=== PATIENT | female | born 1945 | race Caucasian/White ===

== ENCOUNTER 2020-07-04 08:25 | Outpatient (REF) | payer MEDICARE, SELFPAY ==
--- NOTE | 2020-07-04 08:29 | CT_ITS ---
EXAMINATION: CT CHEST SCREENING CLINICAL INFORMATION: Smoking history COMPARISON: Previous exams March and June 2019 TECHNIQUE: Multidetector volumetric CT imaging of the chest is performed without contrast using low dose technique. Additional 2D coronal and sagittal reformatted images and axial 3D maximum intensity projection (MIP) images are generated on the CT workstation. This CT examination was performed using dose optimization techniques as appropriate, variously including the following: *Automated exposure control *Adjustment of mA and/or kV according to patient size (this includes techniques or standardized protocols for targeted exams where dose is matched to indication/reason for exam; i.e. extremities or head) *Use of iterative reconstruction technique DLP: 46 mGy-cm FINDINGS: LUNGS: There is evidence of mild emphysema. There are innumerable small bilateral pulmonary nodules with upper lobe predominance. Largest right pulmonary nodule measure 5 x 8 mm in the right upper lobe axial image 117 series 4. Largest left pulmonary nodule measures 6 x 8 mm in the left upper lobe axial image 164 series 4. Again, some nodules appear associated with airways and adjacent areas of mild bronchiectasis and bronchial wall thickening with cavitary appearance likely related to focal bronchiectasis. Multiple nodules are new compared to 2019 exams. Many nodules seen on prior exams from 2019 are no longer seen. No endobronchial or endotracheal lesion is seen. MEDIASTINUM: There is coronary artery calcification. The ascending thoracic aorta is upper normal in size. There is no pericardial effusion. There are small mediastinal lymph nodes. PLEURA: There is no pleural effusion. No pleural mass or thickening. AXILLA: No lymphadenopathy. UPPER ABDOMEN: There is diverticulosis of the colon. The left renal cyst is partially visualized. OSSEOUS STRUCTURES: There are degenerative changes of the spine. CT/CT lung screening IMPRESSION: Emphysema. Multiple small pulmonary nodules with upper lobe predominance, largest measuring 6 x 8 mm in the left upper lobe. Some nodules appear associated with airways. Multiple nodules are new compared to 2019 exams. Many nodules seen on prior exam from 2019 are no longer seen. Coronary artery calcification and upper normal-size thoracic aorta. ASSESSMENT: Lung-RADS category 4A suspicious RECOMMENDATION: 3 month follow follow-up low-dose chest CT recommended.
== END 2020-07-04 08:26 | disposition home or self-care (01) ==
LOC: HO.CT 08:25
PROVIDERS: PCP Internal Medicine; Visit Provider Surgery
DX: Z12.2 Encounter for screening for malignant neoplasm of respiratory organs (principal); F17.210 Nicotine dependence, cigarettes, uncomplicated
CPT/HCPCS: 71250

== ENCOUNTER 2020-07-12 08:25 | Outpatient (REF) | payer MEDICARE, SELFPAY | END 2020-07-12 08:26 | disposition home or self-care (01) | LOC: HO.BBR 08:25 | PROVIDERS: PCP Internal Medicine; Visit Provider Internal Medicine | DX: Z13.89 Encounter for screening for other disorder (principal) ==

== ENCOUNTER 2020-07-12 09:13 | Outpatient (REF) | payer SELFPAY ==
[2020-07-12 09:52] LABS: Cholesterol 167 mg/dL
== END 2020-07-12 09:14 | disposition home or self-care (01) ==
LOC: HO.LNC 09:13
PROVIDERS: Visit Provider Pathology Anatomic Pathology & Clinical Pathology
DX: Z76.89 Persons encountering health services in other specified circumstances (principal)
CPT/HCPCS: 82465

== ENCOUNTER → 2020-07-26 09:47 | Outpatient (BNVA) | payer BC, SELFPAY | PROVIDERS: PCP Internal Medicine; Referring Provider Internal Medicine; Visit Provider Internal Medicine | DX: Z76.89 Persons encountering health services in other specified circumstances (principal) ==

== ENCOUNTER 2020-08-29 08:47 | Outpatient (REF) | payer MEDICARE, SELFPAY ==
--- NOTE | 2020-08-29 13:53 | PFT_ITS ---
FLOWS: FEV1 of 85% of predicted at 1.58 L. FVC 82% of predicted at 2.08 L. FEV1 to FVC ratio of 0.76. No bronchodilator response except in small to medium airways. LUNG VOLUMES: Total lung capacity 99% of predicted at 4.73 L. Residual volume 121% of predicted at 2.71 L. Slow vital capacity 79% of predicted at 2.02 L. Expiratory reserve volume 85% of predicted at 0.43 L. Diffusion capacity is moderately decreased. IMPRESSION: No obstructive or restrictive ventilatory defect. No bronchodilator response except in small to medium airways. Increased residual volume suggests air trapping. Decreased diffusion capacity suggests emphysema. MD DEMETRIUS Hanson/MODL / [id number]
== END 2020-08-29 08:48 | disposition home or self-care (01) ==
LOC: HO.RESP 08:47
PROVIDERS: PCP Internal Medicine; Visit Provider Internal Medicine
DX: J44.9 Chronic obstructive pulmonary disease, unspecified (principal); R91.8 Other nonspecific abnormal finding of lung field; F17.210 Nicotine dependence, cigarettes, uncomplicated
CPT/HCPCS: 94060; 94727; 94729

== ENCOUNTER 2020-10-07 07:56 | Outpatient (REF) | payer MEDICARE, SELFPAY ==
--- NOTE | ~2020-10-07 | MM_ITS ---
EXAMINATION: MM SCREENING DIGITAL BREAST TOMOSYNTHESIS, BILATERAL CLINICAL INFORMATION: Screening. Asymptomatic. The lifetime risk of breast cancer based on the Tyrer-Cuzick Model is 6%. COMPARISON: Mammography: 10/02/2019, 09/26/2018, 09/19/2017, 08/29/2016 TECHNIQUE: Digital breast tomosynthesis is performed in both the craniocaudal and mediolateral oblique views along with computer-aided detection (CAD). Synthesized 2D images are generated from the tomosynthesis. FINDINGS: There are scattered areas of fibroglandular density (ACR BI-RADS breast composition Category b). There are no significant masses, abnormal calcifications, or other abnormalities. Parenchymal pattern is similar to prior exams. Scattered parenchymal asymmetry central inner right breast are stable. No developing density. The axilla and skin contours are unremarkable. MM/MM tomosynthesis screening BI IMPRESSION: No significant changes from prior exams. ASSESSMENT: BI-RADS 2: Benign RECOMMENDATION: Routine annual mammography screening. This patient's information was entered into a reminder system with a target due date for their next mammogram.
== END 2020-10-07 07:57 | disposition home or self-care (01) ==
LOC: HO.MAMMO 07:56
PROVIDERS: PCP Internal Medicine; Visit Provider Internal Medicine
DX: Z12.31 Encounter for screening mammogram for malignant neoplasm of breast (principal)
CPT/HCPCS: 77063; 77067

== ENCOUNTER 2021-01-05 08:19 | Outpatient (REF) | payer MEDICARE, SELFPAY ==
--- NOTE | ~2021-01-05 | CT_ITS ---
EXAMINATION: CT CHEST SCREENING CLINICAL INFORMATION: Smoker. Multiple nodes. COMPARISON: None. TECHNIQUE: Multidetector volumetric CT imaging of the chest is performed without contrast using low dose technique. Additional 2D coronal and sagittal reformatted images and axial 3D maximum intensity projection (MIP) images are generated on the CT workstation. This CT examination was performed using dose optimization techniques as appropriate, variously including the following: *Automated exposure control *Adjustment of mA and/or kV according to patient size (this includes techniques or standardized protocols for targeted exams where dose is matched to indication/reason for exam; i.e. extremities or head) *Use of iterative reconstruction technique DLP: 47 mGy-cm FINDINGS: LUNGS: The lungs are well expanded. There is a tree-in-bud appearance right lung apex, new since the previous study and best visualized on axial image 55/6. There are scattered pulmonary nodules visualized. A 3 mm new right apical lung nodule image 47/6, 4 mm nodule right upper lobe lateral segment image 127/6, previously seen 3 mm nodule left upper lobe axial image 114/5 are not distinctly visualized. Two nodules adjacent to each other seen previously on image 166/5 are not seen at this time. There are several subcentimeter two or three nodules seen in both upper lobes, a 3 mm nodule left upper lobe superior segment adjacent to the major fissure image 166/6, stable. There are 2 mm nodules right lower lobe image 72/9 which are stable. There are several additional nodules seen previously which are stable. MEDIASTINUM: The thyroid lobes are symmetrical and normal. The central trachea and the bronchi are widely patent. Heart size and the great vessels are normal caliber. No abnormal-sized mediastinal or hilar lymph node seen. There are coronary artery calcifications present. There is no pericardial effusion. PLEURA: There is no pleural effusion. No pleural mass or thickening. AXILLA: There are small shotty lymph nodes seen in bilateral axilla. The chest wall appears unremarkable. UPPER ABDOMEN: Visualized liver, spleen, pancreas and bilateral adrenal glands are unremarkable. OSSEOUS STRUCTURES: There is no lytic or sclerotic process seen. There is mild ventral spondylosis mid and lower dorsal spine. CT/CT lung screen follow up IMPRESSION: Waxing and waning of small pulmonary nodules seen. The largest left pulmonary nodule measuring 6 x 8 mm is not visualized, the largest nodule in the right upper lobe is also not visualized. No abnormal lymphadenopathy. ASSESSMENT: Lung-RADS category 2: Benign. RECOMMENDATION: Low dose annual CT chest.
== END 2021-01-05 08:20 | disposition home or self-care (01) ==
LOC: HO.CT 08:19
PROVIDERS: PCP Internal Medicine; Visit Provider Physician Assistant Medical
DX: Z12.2 Encounter for screening for malignant neoplasm of respiratory organs (principal); F17.210 Nicotine dependence, cigarettes, uncomplicated
CPT/HCPCS: 71250

== ENCOUNTER → 2021-01-13 10:02 | Outpatient (BNVA) | payer MEDICARE, SELFPAY | PROVIDERS: PCP Internal Medicine; Visit Provider Surgery | DX: R91.8 Other nonspecific abnormal finding of lung field (principal); F17.210 Nicotine dependence, cigarettes, uncomplicated; Z79.899 Other long term (current) drug therapy | CPT/HCPCS: 99212 ==

== ENCOUNTER → 2021-03-16 09:59 | Outpatient (BNVA) | payer MEDICARE, SELFPAY | PROVIDERS: PCP Internal Medicine; Visit Provider Internal Medicine | DX: R91.8 Other nonspecific abnormal finding of lung field (principal); J44.9 Chronic obstructive pulmonary disease, unspecified; Z87.891 Personal history of nicotine dependence; Z79.899 Other long term (current) drug therapy | CPT/HCPCS: 99212 ==

== ENCOUNTER → 2021-03-17 09:51 | Outpatient (BNV) | payer MEDICARE, SELFPAY | PROVIDERS: PCP Internal Medicine; Visit Provider Internal Medicine | DX: E83.110 Hereditary hemochromatosis (principal) | CPT/HCPCS: 99213; G2211 ==

== ENCOUNTER 2021-04-14 06:29 | Outpatient (REF) | payer MEDICARE, SELFPAY ==
[2021-04-14 08:22] LABS: MANUAL DIFF FLAG NO
[2021-04-14 08:29] LABS: Basophils Percent Auto 0.5 % (0-2); Eosinophils Absolute Auto 0.1 X10*3/uL (0.0-0.4); Eosinophils Percent Auto 1.6 % (0-4); Hematocrit 49.5 % (37-47); Hemoglobin 16.6 g/dl (12.0-16.0); Imm Gran Abs Auto 0.01 X10*3/uL (0.00-0.03); Imm Gran Pct Auto 0.2 % (0.0-0.4); Lymphocytes Absolute Auto 1.8 X10*3/uL (1.2-4.9); Lymphocytes Percent Auto 32.6 % (20-40); Mean Corpuscular HGB Conc 33.5 g/dl (31.0-35.0); Mean Corpuscular Hemoglobin 31.2 pg (27.0-33.0); Mean Platelet Volume 9.9 fL (9.4-12.3); Monocytes Absolute Auto 0.3 X10*3/uL (0.1-1.2); Monocytes Percent Auto 6.2 % (2-11); Neutrophils Absolute Auto 3.2 X10*3/uL (2.0-8.3); Neutrophils Percent Auto 58.9 % (45-73); Platelet Count 218 X10*3/uL (160-400); Red Blood Count 5.32 X10*6/uL (4.20-5.50); Red Cell Distribution Width 12.6 % (11.0-16.0); White Blood Count 5.5 X10*3/uL (4.8-10.8)
[2021-04-14 09:02] LABS: Alanine Aminotransferase 21 U/L (0-31); Albumin Level 4.2 g/dL (3.5-5.0); Alkaline Phosphatase 51 U/L (39-117); Anion Gap 14 (12-20); Aspartate Amino Transferase 21 U/L (5-31); Bilirubin Total 0.9 mg/dL (0.0-1.0); Blood Urea Nitrogen 15 mg/dL (9-16); Calcium 9.3 mg/dL (8.4-10.2); Carbon Dioxide 25 mmol/L (22-29); Chloride 107 mmol/L (96-108); Cholesterol 169 mg/dL; Estimated Glomerular Filt Rate > 60; Glucose Fasting 96 mg/dL (60-99); HDL Cholesterol 39 mg/dL; LDL Cholesterol Calculated 109 mg/dl; Potassium 4.5 mmol/L (3.3-5.1); Sodium 141 mmol/L (135-145); Total Protein 7.1 g/dL (6.5-8.0); Triglycerides 106 mg/dL
[2021-04-14 09:11] LABS: TSH reflex Free T4 0.79 uIU/mL (0.32-4.0)
[2021-04-14 09:19] LABS: Glucose Urine UA NEG (NEG); Leukocyte Esterase Urine 3+ (NEG); Nitrite Urine NEG (NEG); Specific Gravity - Urine 1.025 (1.005-1.025); UACC Culture Trigger YES; Urine Blood TRACE (NEG); Urine Ketones NEG (NEG); Urine Protein NEG (NEG-TRACE)
[2021-04-14 09:33] LABS: Appearance Urine HAZY; Color Urine YELLOW
[2021-04-14 10:01] LABS: Bacteria Urine TRACE /LPF; RBC Urine 0-2 /HPF (0); Squamous Epithelial Cell Urine TRACE /LPF
== END 2021-04-14 06:30 | disposition home or self-care (01) ==
LOC: HO.LAB 06:29
PROVIDERS: PCP Internal Medicine; Visit Provider Internal Medicine
DX: F17.200 Nicotine dependence, unspecified, uncomplicated (principal); Z14.8 Genetic carrier of other disease; E78.5 Hyperlipidemia, unspecified; R73.01 Impaired fasting glucose; E66.9 Obesity, unspecified
CPT/HCPCS: 36415; 80053; 80061; 81001; 84443; 85025; 87086

== ENCOUNTER → 2021-09-18 09:40 | Outpatient (BNVA) | payer MEDICARE, SELFPAY | PROVIDERS: PCP Internal Medicine; Visit Provider Internal Medicine | DX: J44.9 Chronic obstructive pulmonary disease, unspecified (principal); R91.8 Other nonspecific abnormal finding of lung field; Z14.8 Genetic carrier of other disease; F17.210 Nicotine dependence, cigarettes, uncomplicated; Z71.6 Tobacco abuse counseling | CPT/HCPCS: 99212 ==

== ENCOUNTER 2021-10-21 08:15 | Outpatient (REF) | payer MEDICARE, SELFPAY ==
--- NOTE | ~2021-10-21 | MM_ITS ---
EXAMINATION: MM SCREENING DIGITAL BREAST TOMOSYNTHESIS, BILATERAL CLINICAL INFORMATION: Screening. Asymptomatic. The lifetime risk of breast cancer based on the Tyrer-Cuzick Model is 5%. COMPARISON: Mammography: 10/07/2020, 10/02/2019, 09/26/2018, 09/19/2017, 08/29/2016 TECHNIQUE: Digital breast tomosynthesis is performed in both the craniocaudal and mediolateral oblique views along with computer-aided detection (CAD). Synthesized 2D images are generated from the tomosynthesis. FINDINGS: There are scattered areas of fibroglandular density (ACR BI-RADS breast composition Category b). There are no significant masses, abnormal calcifications, or other abnormalities. Parenchymal pattern is similar to prior studies. There are no significant changes. MM/MM tomosynthesis screening BI IMPRESSION: No significant changes from prior studies. ASSESSMENT: BI-RADS 1: Negative RECOMMENDATION: Routine annual mammography screening. This patient's information was entered into a reminder system with a target due date for their next mammogram.
== END 2021-10-21 08:16 | disposition home or self-care (01) ==
LOC: HO.MAMMO 08:15
PROVIDERS: PCP Internal Medicine; Visit Provider Internal Medicine
DX: Z12.31 Encounter for screening mammogram for malignant neoplasm of breast (principal)
CPT/HCPCS: 77063; 77067

== ENCOUNTER 2022-01-09 08:11 | Outpatient (REF) | payer MEDICARE, SELFPAY ==
--- NOTE | ~2022-01-09 | CT_ITS ---
EXAMINATION: CT CHEST SCREENING CLINICAL INFORMATION: Current smoker. 65 pack year history. COMPARISON: None. TECHNIQUE: Multidetector volumetric CT imaging of the chest is performed without contrast using low dose technique. Additional 2D coronal and sagittal reformatted images and axial 3D maximum intensity projection (MIP) images are generated on the CT workstation. This CT examination was performed using dose optimization techniques as appropriate, variously including the following: *Automated exposure control *Adjustment of mA and/or kV according to patient size (this includes techniques or standardized protocols for targeted exams where dose is matched to indication/reason for exam; i.e. extremities or head) *Use of iterative reconstruction technique DLP: 46 mGy-cm FINDINGS: LUNGS: There is evidence of emphysema. There are innumerable small bilateral pulmonary nodules. These appear increased in size and number from previous exams. Largest right pulmonary nodules measure 5 mm in the right upper lobe axial image 166 series 5, and 4 x 8 mm in the right lower lobe axial image 220 series 5. Largest left pulmonary nodules measure 4 mm the left upper lobe axial image 85 and 89 series 5. There is a new heterogeneous mixed cystic and reticular nodule in the left upper lobe measuring 5 x 10 mm axial image 186 series 5 and smaller more inferior area measuring 5 mm in the left upper lobe axial image 198 series 5. There is increasing tree-in-bud appearance in the right lung apex, largest areas measuring 0.4 x 1.2 cm in the right upper lobe axial image 58 series 5, and 0.4 x 0.8 cm in the right upper lobe axial image 60 series 5 which appear branching or tubular and may be endobronchial. No endotracheal lesion is seen. No bronchiectasis or evidence of interstitial lung disease is seen. MEDIASTINUM: There is coronary artery calcification. The mediastinum is otherwise normal. PLEURA: There is no pleural effusion. No pleural mass or thickening. AXILLA: No lymphadenopathy. UPPER ABDOMEN: Partially visualized large left renal cyst. OSSEOUS STRUCTURES: There are degenerative changes of the spine. CT/CT lung screening IMPRESSION: Emphysema. Increasing size and number of pulmonary nodules compared to December 2020. Infectious, inflammatory and neoplastic processes should be considered. Short-term follow-up following treatment recommended. Coronary artery calcification. Large left renal cyst. ASSESSMENT: Lung-RADS category 4. Suspicious. RECOMMENDATION: Low-dose chest CT follow-up in 3 months following treatment recommended .
== END 2022-01-09 08:12 | disposition home or self-care (01) ==
LOC: HO.CT 08:11
PROVIDERS: Visit Provider Physician Assistant Medical
DX: Z12.2 Encounter for screening for malignant neoplasm of respiratory organs (principal); F17.210 Nicotine dependence, cigarettes, uncomplicated
CPT/HCPCS: 71271

== ENCOUNTER → 2022-03-27 10:31 | Outpatient (BNVA) | payer MEDICARE, SELFPAY | PROVIDERS: PCP Internal Medicine; Visit Provider Internal Medicine | DX: J44.9 Chronic obstructive pulmonary disease, unspecified (principal); J30.9 Allergic rhinitis, unspecified; R91.8 Other nonspecific abnormal finding of lung field; F17.210 Nicotine dependence, cigarettes, uncomplicated | CPT/HCPCS: 99212 ==

== ENCOUNTER 2022-04-03 06:12 | Outpatient (REF) | payer MEDICARE, SELFPAY ==
[2022-04-03 06:18] LABS: MANUAL DIFF FLAG NO
[2022-04-03 07:25] LABS: Basophils Percent Auto 0.8 % (0-2); Eosinophils Absolute Auto 0.1 X10*3/uL (0.0-0.4); Eosinophils Percent Auto 1.6 % (0-4); Hematocrit 49.2 % (37.0-47.0); Hemoglobin 16.5 g/dl (12.0-16.0); Imm Gran Abs Auto 0.01 X10*3/uL (0.00-0.03); Imm Gran Pct Auto 0.2 % (0.0-0.4); Lymphocytes Absolute Auto 1.8 X10*3/uL (1.2-4.9); Lymphocytes Percent Auto 34.2 % (20-40); Mean Corpuscular HGB Conc 33.5 g/dl (31.0-35.0); Mean Corpuscular Hemoglobin 31.3 pg (27.0-33.0); Mean Corpuscular Volume 93.2 fL (80.0-98.0); Mean Platelet Volume 9.5 fL (9.4-12.3); Monocytes Absolute Auto 0.4 X10*3/uL (0.1-1.2); Monocytes Percent Auto 7.4 % (2-11); Neutrophils Absolute Auto 2.9 x10*3/uL (2.0-8.3); Neutrophils Percent Auto 55.8 % (45-73); Platelet Count 230 X10*3/uL (160-400); Red Blood Count 5.28 X10*6/uL (4.20-5.50); Red Cell Distribution Width 12.7 % (11.0-16.0); White Blood Count 5.1 X10*3/uL (4.8-10.8)
[2022-04-03 07:43] LABS: Alanine Aminotransferase 14 U/L (0-31); Albumin Level 4.1 g/dL (3.5-5.0); Alkaline Phosphatase 55 U/L (39-117); Anion Gap 14 (12-20); Aspartate Amino Transferase 18 U/L (5-31); Bilirubin Total 0.5 mg/dL (0.0-1.0); Blood Urea Nitrogen 14 mg/dL (9-16); Calcium 9.1 mg/dL (8.4-10.2); Carbon Dioxide 26 mmol/L (22-29); Chloride 106 mmol/L (96-108); Cholesterol 168 mg/dL; Estimated Glomerular Filt Rate > 60; Glucose Fasting 97 mg/dL (60-99); HDL Cholesterol 39 mg/dL; LDL Cholesterol Calculated 114 mg/dl; Potassium 4.7 mmol/L (3.3-5.1); Sodium 141 mmol/L (135-145); Total Protein 6.8 g/dL (6.5-8.0); Triglycerides 75 mg/dL
[2022-04-03 08:06] LABS: TSH reflex Free T4 0.84 uIU/mL (0.32-4.0); Vitamin D 25-OH Total 40.5 ng/mL (>30)
[2022-04-03 08:17] LABS: Estimated Average Glucose 105 mg/dL; Hemoglobin A1C 148.4397 umol/L; Hemoglobin A1c % 5.3 %
[2022-04-03 09:09] LABS: Appearance Urine HAZY; Color Urine YELLOW; Glucose Urine UA NEG (NEG); Leukocyte Esterase Urine 1+ (NEG); Nitrite Urine NEG (NEG); PH 5.5 (5.0-8.0); Specific Gravity - Urine >= 1.030 (1.005-1.025); UACC Culture Trigger YES; Urine Blood NEG (NEG); Urine Ketones NEG (NEG); Urine Protein NEG (NEG-TRACE)
[2022-04-03 09:20] LABS: RBC Urine 0 /HPF (0)
[2022-04-03 09:21] LABS: Bacteria Urine TRACE /LPF; Calcium Oxalate Crystals Urine 2+ /LPF; Squamous Epithelial Cell Urine 2+ /LPF
== END 2022-04-03 06:13 | disposition home or self-care (01) ==
LOC: HO.LAB 06:12
PROVIDERS: PCP Internal Medicine; Visit Provider Internal Medicine
DX: I10 Essential (primary) hypertension (principal); E78.5 Hyperlipidemia, unspecified; E78.00 Pure hypercholesterolemia, unspecified; E55.9 Vitamin D deficiency, unspecified; R73.01 Impaired fasting glucose
CPT/HCPCS: 36415; 80053; 80061; 81001; 81003; 82306; 83036; 84443; 85025; 87086

== ENCOUNTER 2022-09-19 06:07 | Outpatient (REF) | payer MEDICARE, SELFPAY ==
[2022-09-19 06:26] LABS: MANUAL DIFF FLAG NO
[2022-09-19 07:44] LABS: Basophils Percent Auto 0.6 % (0-2); Eosinophils Absolute Auto 0.1 X10*3/uL (0.0-0.4); Eosinophils Percent Auto 1.1 % (0-4); Hematocrit 48.3 % (37.0-47.0); Hemoglobin 16.1 g/dl (12.0-16.0); Imm Gran Abs Auto 0.01 X10*3/uL (0.00-0.03); Imm Gran Pct Auto 0.2 % (0.0-0.4); Lymphocytes Absolute Auto 1.5 X10*3/uL (1.2-4.9); Mean Corpuscular HGB Conc 33.3 g/dl (31.0-35.0); Mean Corpuscular Hemoglobin 30.8 pg (27.0-33.0); Mean Corpuscular Volume 92.5 fL (80.0-98.0); Mean Platelet Volume 9.6 fL (9.4-12.3); Monocytes Absolute Auto 0.3 X10*3/uL (0.1-1.2); Monocytes Percent Auto 5.8 % (2-11); Neutrophils Absolute Auto 3.5 x10*3/uL (2.0-8.3); Neutrophils Percent Auto 65.3 % (45-73); Platelet Count 236 X10*3/uL (160-400); Red Blood Count 5.22 X10*6/uL (4.20-5.50); Red Cell Distribution Width 12.7 % (11.0-16.0); White Blood Count 5.4 X10*3/uL (4.8-10.8)
[2022-09-19 07:52] LABS: Appearance Urine Clear; Color Urine Dark Yellow; Glucose Urine UA Negative (Negative); Leukocyte Esterase Urine Moderate (2+) (Negative); Nitrite Urine Negative (Negative); PH 5.5 (5.0-9.0); UMIC TRIGGER UACC YES; Urine Blood Negative (Negative); Urine Ketones Negative (Negative); Urine Protein Negative (Neg-Trace)
[2022-09-19 07:56] LABS: Bacteria Urine None Seen (None Seen); Hyaline Casts Urine 0-2 /LPF (0-2); RBC Urine 0-2 /HPF (0-2); UACC Culture Trigger YES
[2022-09-19 08:25] LABS: Alanine Aminotransferase 15 U/L (0-31); Alkaline Phosphatase 57 U/L (39-117); Anion Gap 14 (12-20); Aspartate Amino Transferase 21 U/L (5-31); Bilirubin Total 0.7 mg/dL (0.0-1.0); Blood Urea Nitrogen 14 mg/dL (9-16); Calcium 9.6 mg/dL (8.4-10.2); Carbon Dioxide 29 mmol/L (22-29); Chloride 104 mmol/L (96-108); Cholesterol 163 mg/dL; Estimated Glomerular Filt Rate > 60; Glucose Fasting 138 mg/dL (60-99); HDL Cholesterol 48 mg/dL; LDL Cholesterol Calculated 94 mg/dl; Potassium 4.6 mmol/L (3.3-5.1); Sodium 142 mmol/L (135-145); Total Protein 6.7 g/dL (6.5-8.0); Triglycerides 107 mg/dL
[2022-09-19 08:46] LABS: Vitamin D 25-OH Total 35.8 ng/mL (>30)
== END 2022-09-19 06:08 | disposition home or self-care (01) ==
LOC: HO.LAB 06:07
PROVIDERS: PCP Internal Medicine; Visit Provider Internal Medicine
DX: Z14.8 Genetic carrier of other disease (principal); J44.9 Chronic obstructive pulmonary disease, unspecified; E55.9 Vitamin D deficiency, unspecified; E78.00 Pure hypercholesterolemia, unspecified; R82.90 Unspecified abnormal findings in urine
CPT/HCPCS: 36415; 80053; 80061; 81001; 82306; 84443; 85025; 87086

== ENCOUNTER 2022-10-29 07:59 | Outpatient (REF) | payer MEDICARE, SELFPAY ==
--- NOTE | ~2022-10-29 | MM_ITS ---
EXAMINATION: MM SCREENING DIGITAL BREAST TOMOSYNTHESIS, BILATERAL CLINICAL INFORMATION: Screening. Asymptomatic. The lifetime risk of breast cancer based on the Tyrer-Cuzick Model is 5%. COMPARISON: Mammography: 10/21/2021, 10/07/2020, 10/02/2019 TECHNIQUE: Digital breast tomosynthesis is performed in both the craniocaudal and mediolateral oblique views along with computer-aided detection (CAD). Synthesized 2D images are generated from the tomosynthesis. FINDINGS: There are scattered areas of fibroglandular density (ACR BI-RADS breast composition Category b). There is fine fibronodular parenchymal pattern. No significant mass or architectural abnormality. No abnormal calcifications. The axilla and skin contours are unremarkable. No significant changes prior exams. MM/MM tomosynthesis screening BI IMPRESSION: No significant changes from prior studies. ASSESSMENT: BI-RADS 2: Benign RECOMMENDATION: Routine annual mammography screening. This patient's information was entered into a reminder system with a target due date for their next mammogram.
== END 2022-10-29 08:00 | disposition home or self-care (01) ==
LOC: HO.MAMMO 07:59
PROVIDERS: PCP Internal Medicine; Visit Provider Internal Medicine
DX: Z12.31 Encounter for screening mammogram for malignant neoplasm of breast (principal)
CPT/HCPCS: 77063; 77067

== ENCOUNTER 2023-03-21 06:02 | Outpatient (REF) | payer MEDICARE, SELFPAY ==
[2023-03-21 06:22] LABS: MANUAL DIFF FLAG NO
[2023-03-21 07:32] LABS: Basophils Percent Auto 0.8 % (0-2); Eosinophils Absolute Auto 0.1 X10*3/uL (0.0-0.4); Eosinophils Percent Auto 1.9 % (0-4); Hematocrit 48.9 % (37.0-47.0); Hemoglobin 16.3 g/dl (12.0-16.0); Imm Gran Abs Auto 0.05 X10*3/uL (0.00-0.03); Lymphocytes Absolute Auto 1.6 X10*3/uL (1.2-4.9); Lymphocytes Percent Auto 31.3 % (20-40); Mean Corpuscular HGB Conc 33.3 g/dl (31.0-35.0); Mean Corpuscular Hemoglobin 31.3 pg (27.0-33.0); Mean Corpuscular Volume 93.9 fL (80.0-98.0); Mean Platelet Volume 9.7 fL (9.4-12.3); Monocytes Absolute Auto 0.3 X10*3/uL (0.1-1.2); Monocytes Percent Auto 6.5 % (2-11); Neutrophils Percent Auto 58.5 % (45-73); Platelet Count 235 X10*3/uL (160-400); Red Blood Count 5.21 X10*6/uL (4.20-5.50); Red Cell Distribution Width 12.4 % (11.0-16.0); White Blood Count 5.2 X10*3/uL (4.8-10.8)
[2023-03-21 07:38] LABS: Estimated Average Glucose 105 mg/dL; Hemoglobin A1c % 5.3 %
[2023-03-21 07:47] LABS: Appearance Urine Clear; Color Urine Yellow; Glucose Urine UA Negative (Negative); Leukocyte Esterase Urine Moderate (2+) (Negative); Nitrite Urine Negative (Negative); UMIC TRIGGER UACC YES; Urine Blood Negative (Negative); Urine Ketones Negative (Negative); Urine Protein Negative (Neg-Trace)
[2023-03-21 08:17] LABS: Bacteria Urine Trace (None Seen); Hyaline Casts Urine 0-2 /LPF (0-2); RBC Urine 0-2 /HPF (0-2); WBC Urine 0-5 /HPF (0-5)
[2023-03-21 08:21] LABS: Alanine Aminotransferase 15 U/L (0-31); Albumin Level 3.9 g/dL (3.5-5.0); Alkaline Phosphatase 53 U/L (39-117); Anion Gap 16 (12-20); Aspartate Amino Transferase 20 U/L (5-31); Bilirubin Total 0.4 mg/dL (0.0-1.0); Blood Urea Nitrogen 11 mg/dL (9-16); Calcium 9.3 mg/dL (8.4-10.2); Carbon Dioxide 23 mmol/L (22-29); Chloride 107 mmol/L (96-108); Cholesterol 167 mg/dL; Estimated Glomerular Filt Rate > 60; Glucose Fasting 104 mg/dL (60-99); HDL Cholesterol 43 mg/dL; LDL Cholesterol Calculated 111 mg/dl; Potassium 4.7 mmol/L (3.3-5.1); Sodium 141 mmol/L (135-145); Triglycerides 67 mg/dL
[2023-03-21 08:41] LABS: TSH reflex Free T4 0.79 uIU/mL (0.32-4.0)
== END 2023-03-21 06:03 | disposition home or self-care (01) ==
LOC: HO.LAB 06:02
PROVIDERS: PCP Internal Medicine; Visit Provider Internal Medicine
DX: Z14.8 Genetic carrier of other disease (principal); E78.5 Hyperlipidemia, unspecified; R73.01 Impaired fasting glucose; E55.9 Vitamin D deficiency, unspecified
CPT/HCPCS: 36415; 80053; 80061; 81001; 82306; 83036; 84443; 85025

== ENCOUNTER 2023-04-04 09:38 | Outpatient (AMB) | payer MEDICARE, SELFPAY ==
[2023-04-04 10:04] VITALS: BP 120/82; PULSE 66; O2SAT 94; BMI 27.9
--- NOTE | 2023-04-04 10:04 | A.OFFPC_ITS ---
Vital Signs 04/04/23 10:04 Height 5 ft 2 in Weight 152 lb 6 oz BMI 27.9 BP 120/82 Blood Pressure Location Lt brachial Position Sitting Pulse 66 Pulse Source Pulse Oximeter Pulse Oximetry (%) 94 Oxygen Delivery Method Room Air Intake Visit Reasons: 6m F/U Hemochromatosis carrier, Dyslipidemia,IFG [employer] Required: No Accompanied by: Self / Same As Patient Allergies Sulfa (Sulfonamide Antibiotics) Allergy (Intermediate, Verified 04/04/23 10:22) RASH,HIVES,ITCHY Medication List - Last Reconciled 04/04/23 by Jorge L Schneiedr MD cyanocobalamin (vitamin B-12) 500 mcg PO DAILY multivitamin (Daily Multi-Vitamin tablet) 1 tab PO DAILY oxybutynin chloride ER 10 mg PO DAILY 90 days Tobacco use date assessed: 04/04/23 Fall risk assessment: No Falls in past year Last assessed Fall Risk: 04/04/23 Dental Screening Dental Screen Date: 04/04/23 Did you have a dental visit in the last 12 months?: Yes Did you have a dental problem in the last 6 months where you did not have access to dental care?: No Was dental information given to patient?: Patient has dentist HPI 6m F/U Hemochromatosis carrier, Dyslipidemia,IFG HPI Details Patient comes in today for her follow up visit States that she feels okay Had her cataract surgery done back in December 2022 - states that her surgery went well with no issues Is presently getting injections into her eye from ophthalmology for macular degeneration She denies any headaches or dizziness Denies any chest pains, no SOB No nausea/vomiting, no abdominal pain No change in bowel habits noted Was seen by hematology/oncology last month for her routine follow up - was advised that everything looks okay and she currently has no concerning issues and she will be seen again for her follow up in 1 year Had her follow up labs done a couple of weeks ago - to discuss her results [facility] Medical History Allergic rhinitis COPD (chronic obstructive pulmonary disease) Dyslipidemia Hemochromatosis carrier Impaired fasting glucose Nicotine dependence, cigarettes, uncomplicated Overactive bladder Overweight (BMI 25.0-29.9) Personal history of nicotine dependence Pulmonary nodules Smoker Surgical History History of breast biopsy History of cataract surgery History of colonoscopy History of excision of lesion Family History Mother Hemochromatosis Breast cancer Maternal Aunt Ovarian cancer Maternal Aunt Breast cancer Father Medical history unknown Social History Household Members: None Housing: House Alcohol intake: current Alcohol intake frequency: holidays/special occasions only Alcohol type: wine Patient Tobacco Use Status: Current everyday Tobacco user Tobacco use type: Cigarette Cigarette Packs Per Day: 1 Years Smoked: 60 e-Cigarette/Vaping Use: Never Used Second Hand Smoke Exposure: Yes service: No Current occupational status: retired Cognitive needs: No Hearing needs: No Vision needs: Yes Questionnaire PHQ-9 Over the last 2 weeks, how often have you been bothered by any of the following problems? 1. Little interest or pleasure in doing things: not at all 2. Feeling down, depressed, or hopeless: not at all 3. Trouble falling or staying asleep, or sleeping too much: not at all 4. Feeling tired or having little energy: not at all 5. Poor appetite or overeating: not at all 6. Feeling bad about yourself - or that you are a failure or have let yourself or your family down: not at all 7. Trouble concentrating on things, such as reading the newspaper or watching television: not at all 8. Moving or speaking so slowly that other people could have noticed. Or the opposite - being so fidgety or restless that you have been moving around a lot more than usual: not at all 9. Thoughts that you would be better off or of hurting yourself in some way: not at all Total score: 0 Depression Screening Interpretation: Negative 46751 - PHQ-9 Billing: Yes Source: Developed by Drs. Bruno Day, Roxie Fam, Palmer Edwards and colleagues, with an educational alina from [employer]. Thrive Questionnaire Date Thrive assessed: 04/04/23 I am a: Patient What is your living situation today?: I have a steady place to live Within the past 12 months, did the food you bought not last and you didn't have the money to get more?: Never true Within the past 12 months, did you worry whether your food would run out before you got money to buy more?: Never true Do you have trouble paying for medicines?: No Do you have trouble getting transportation to medical appointments?: No Do you have trouble paying your heating and electricity bill?: No Do you have trouble taking care of your child, family member or friend?: No Do you have trouble with day-to-day activities such as bathing, preparing meals, shopping, managing finances, etc.?: No Are you currently unemployed and looking for a job?: No Are you interested in more education?: No Please select the resources that you would like help with: None Currently or been in a relationship where the following occur: no concerns reported AUDIT C Alcohol Use Questionnaire (AUDIT-C) 1. How often do you have a drink containing alcohol?: Never 2. How many drinks containing alcohol do you have on a typical day when you are drinking?: 1 or 2 3. How often do you have six or more drinks on one occasion?: Never Total Score: 0 Score Reviewed/Action Taken: Yes BETY-7 AMB Questionnaire BETY-7 Date BETY - 7 assessed: 04/04/23 Feeling nervous, anxious, or on edge: 0 = Not at all Not being able to stop or control worryin = Not at all Worrying too much about different things: 0 = Not at all Trouble relaxin = Not at all Being so restless that it is hard to sit still: 0 = Not at all Becoming easily annoyed or irritable: 0 = Not at all Feeling afraid as if something awful might happen: 0 = Not at all Total BETY-7 score (0-4 normal; 5-9 mild; 10-14 moderate; 15-21 severe): 0 Source: Developed by Drs. Bruno Day, Roxie Fam, Palmer Edwards and colleagues, with an educational alina from [employer]. Review of Systems Const Denies chills, Denies fatigue, Denies fever(s), Denies headache(s) and Denies malaise ENT Denies dysphagia, Denies dizziness, Denies otalgia, Denies headache(s), Denies neck pain, Denies odynophagia and Denies sore throat Card Denies chest pain, Denies palpitations and Denies dyspnea Resp Denies cough, Denies dyspnea and Denies wheezing GI Denies abdominal pain, Denies constipation, Denies dysphagia, Denies heartburn, Denies diarrhea, Denies nausea, Denies odynophagia and Denies vomiting Denies difficulty voiding, Reports nocturia (symptoms have improved a lot with Rx), Denies dysuria and Reports urinary incontinence (at times - improved with Rx) Musc Denies neck pain Skin/Breast Denies rash Neuro Denies dizziness and Denies headache(s) Endo Denies fatigue and Denies palpitations Aller/Immun Denies wheezing Physical exam (Primary Care) Vital Signs: Last Vital Signs Pulse 66 04/04/23 10:04 BP 120/82 04/04/23 10:04 Pulse Ox 94 04/04/23 10:04 Oxygen Delivery Method Room Air 04/04/23 10:04 BMI result Body Mass Index 27.9 Tobacco/Smoking Status: Tobacco use Status Tobacco use date assessed 04/04/23 04/04/23 10:06 Patient Tobacco Use Status Current everyday Tobacco 04/04/23 10:06 Tobacco use type Cigarette 04/04/23 10:06 e-Cigarette/Vaping Use Never Used 04/04/23 10:06 PHQ-9: PHQ-9 Score PHQ-9: Total score 0 04/04/23 10:23 Depression Screening Interpretation: Negative Thrive Assessment: Date of Thrive Assessment Date Thrive assessed 04/04/23 04/04/23 10:06 Currently or been in a relationship where the following occur: no concerns reported Const General: no acute distress and alert HENMT Ears: TM's normal bilaterally and EAC's normal Throat: Yes posterior oropharynx normal and Yes tonsils normal (no TP congestion noted) Neck Neck: Yes no lymphadenopathy and Yes supple Resp Auscultation: clear to auscultation bilaterally, no rales and no wheezes Cardio Rate: regular rate Rhythm: regular rhythm Heart sounds: no murmurs GI Palpation (GI): Soft to palpation, nontender and No hepatosplenomegaly present Auscultation: normal bowel sounds Extrem General: Yes no clubbing, cyanosis or edema Results Reviewed Results Reviewed: Laboratory Tests 03/04/23 03/21/23 03/21/23 08:38 06:17 06:21 WBC 5.2 Hgb 16.3 H Hct 48.9 H Plt Count 235 Sodium Potassium Creatinine Estimated GFR Fasting Glucose Hemoglobin A1c % Calcium Ferritin 117 AST ALT Triglycerides Cholesterol LDL Cholesterol, Calc HDL Cholesterol 25-OH Vitamin D Total TSH Ur Specific [place] 1.020 Urine Protein Negative Urine Glucose (UA) Negative Urine Blood Negative 03/21/23 03/21/23 06:21 06:21 WBC Hgb Hct Plt Count Sodium 141 Potassium 4.7 Creatinine 0.82 Estimated GFR > 60 Fasting Glucose 104 H Hemoglobin A1c % 5.3 Calcium 9.3 Ferritin AST 20 ALT 15 Triglycerides 67 Cholesterol 167 LDL Cholesterol, Calc 111 HDL Cholesterol 43 25-OH Vitamin D Total 50.0 TSH 0.79 Ur Specific [place] Urine Protein Urine Glucose (UA) Urine Blood Assessment and Plan Assessment & Plan (1) COPD (chronic obstructive pulmonary disease): Comment: (08/29/20 PFT: FEV1 85%, FVC 82%, FEV1/FVC 0.76, DLCO 49%, mod dec).. COPD is mild, she is the essentially asymptomatic at this time No meds needed Will be followed up Yearly and as needed . Code(s): J44.9 - Chronic obstructive pulmonary disease, unspecified Qualifiers: COPD type: unspecified COPD Qualified Code(s): J44.9 - Chronic obstructive pulmonary disease, unspecified Plan: Chest CT done in 2019 showed findings of pulmonary emphysema - patient feels well and reports no symptoms of SOB or [place] at any time Per pulmonary, patient's COPD is mild and still does NOT require any Rx at present Follow up with pulmonary (Dr. 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 Smith/Andriy) as scheduled - is now seen once a year Continue Phlebotomy every 2 to 3 months / as needed - patient states that she has not gone for phlebotomy in the past couple of years Will continue to monitor her CBC regularly (4) Impaired fasting glucose: Code(s): R73.01 - Impaired fasting glucose Plan: HgbA1c was normal at 5.3% when checked last summer and remains normal at 5.3% on her labs done a couple of weeks ago Reinforced low calorie diet/exercise as tolerated (5) Overactive bladder: Code(s): N32.81 - Overactive bladder Plan: Notes (+) significant improvement of her OAD symptoms with Rx Continue Oxybutynin ER 10 mg QD (6) Smoker: Comment: Patient continues to smoke 1 pack of cigarettes a day. She is well aware of the pros and cons. She continues to participate in Annual lung screening program. Code(s): F17.200 - Nicotine dependence, unspecified, uncomplicated Plan: Counseled again on smoking cessation (7) Overweight (BMI 25.0-29.9): Code(s): E66.3 - Overweight Plan: Reinforced diet/exercise as tolerated/lose weight Plan Follow up in 6 months Orders: Orders Vitamin B12 and Folate 6 Months E53.8 - Deficiency of other specified B group vitamins Comprehensive [place]. Panel Fast 6 Months E78.00 - Pure hypercholesterolemia, unspecified Ferritin 6 Months Z14.8 - Genetic carrier of other disease Lipid Panel 6 Months E78.00 - Pure hypercholesterolemia, unspecified Vitamin D 25-OH Total 6 Months E55.9 - Vitamin D deficiency, unspecified Complete Blood Count Auto Diff 6 Months I10 - Essential (primary) hypertension UA CC w/rflx Micro + Cult 6 Months R30.0 - Dysuria Coding Level of Care Code Est Pt Level 4 (66593) Diagnoses COPD (chronic obstructive pulmonary disease) J44.9 COPD type: unspecified COPD Dyslipidemia E78.5 Hemochromatosis carrier Z14.8 Impaired fasting glucose R73.01 Overactive bladder N32.81 Smoker F17.200 Overweight (BMI 25.0-29.9) E66.3
== END 2023-04-04 10:31 | disposition home or self-care (01) ==
LOC: HO.HMGH 09:38
PROVIDERS: PCP Internal Medicine; Visit Provider Internal Medicine
DX: J44.9 Chronic obstructive pulmonary disease, unspecified (principal); E78.5 Hyperlipidemia, unspecified; R73.01 Impaired fasting glucose; F17.210 Nicotine dependence, cigarettes, uncomplicated; Z14.8 Genetic carrier of other disease; N32.81 Overactive bladder; E66.3 Overweight
CPT/HCPCS: 99214

== ENCOUNTER 2023-04-18 10:44 | Outpatient (AMB) | payer MEDICARE, SELFPAY ==
--- NOTE | 2023-04-18 10:47 | MHC.OFFVIS ---
Intake Vital Signs 04/18/23 10:48 Height 5 ft 2 in Weight 153 lb 3.54 oz BMI 28.0 BP 128/68 Blood Pressure Location Lt brachial Position Sitting Pulse 70 Pulse Source Pulse Oximeter Pulse Oximetry (%) 94 Oxygen Delivery Method Room Air Intake Visit Reasons: COPD Allergies Sulfa (Sulfonamide Antibiotics) Allergy (Intermediate, Verified 04/18/23 11:07) RASH,HIVES,ITCHY Medication List - Last Reconciled 04/18/23 by Brenda Amador MD cyanocobalamin (vitamin B-12) 2,000 mcg PO DAILY multivitamin (Daily Multi-Vitamin tablet) 1 tab PO DAILY oxybutynin chloride ER 10 mg PO DAILY 90 days Do you need a note to return to daycare/school/sports/work: No HPI COPD HPI Details 77 YEARS OLD VERY PLEASANT FEMALE, SMOKER, LIVES INDEPENDENTLY IN HER HOUSE. SHE HAS NO SPECIFIC COMPLAINTS, EXCEPT FOR MILD INTERMITTENT COUGH, AND ALSO THAT SHE GETS SHORT OF BREATH ON DOING HER HOUSEHOLD WORK SOMEWHAT MORE THAN BEFORE. SHE HAS HAD NO ACUTE RESPIRATORY INFECTIONS. SHE DOES NOT USE ANY BRONCHODILATOR INHALERS. SHE ALSO DOES NOT NEED TO USE ANY COUGH MEDICINE. SHE IS PARTICIPATING IN ANNUAL LUNG SCREENING PROGRAM. LAST CT SCAN IN DECEMBER 2021, SHE HAS NOT BEEN CALLED SO FOR THIS YEAR. HER CT SCANS DO SHOW MULTIPLE BUT SMALL PULMONARY NODULES, PFSH Medical History Allergic rhinitis COPD (chronic obstructive pulmonary disease) Dyslipidemia Hemochromatosis carrier Impaired fasting glucose Nicotine dependence, cigarettes, uncomplicated Overactive bladder Overweight (BMI 25.0-29.9) Personal history of nicotine dependence Pulmonary nodules Smoker Surgical History History of breast biopsy History of cataract surgery History of colonoscopy History of excision of lesion Family History Mother Hemochromatosis Breast cancer Maternal Aunt Ovarian cancer Maternal Aunt Breast cancer Father Medical history unknown Social History Household Members: None Housing: House Alcohol intake: current Alcohol intake frequency: holidays/special occasions only Alcohol type: wine Patient Tobacco Use Status: Current everyday Tobacco user Tobacco use type: Cigarette Cigarette Packs Per Day: 1 Years Smoked: 60 e-Cigarette/Vaping Use: Never Used Second Hand Smoke Exposure: Yes service: No Current occupational status: retired Cognitive needs: No Hearing needs: No Vision needs: Yes Review of Systems Const All systems reviewed & are unremarkable except as noted in HPI and below Eyes Reports other (HAS MACULAR DEGENERATION, GETTING INJECTION ONCE A MONTH.) ENT Details: Reports no additional complaints Card Denies chest pain, Denies irregular heart rhythm and Denies leg edema Resp Reports as per HPI GI Reports no additional complaints Reports urinary incontinence (CONTROLLED WITH OXYBUTYNIN CHLORIDE) Musc Reports no additional complaints Skin/Breast Reports system reviewed and no additional complaints, except as documented Neuro Reports no additional complaints Psych Reports no additional complaints Endo Reports no additional complaints Physical Exam Vital Signs: Last Vital Signs Pulse 70 04/18/23 10:48 BP 128/68 04/18/23 10:48 Pulse Ox 94 04/18/23 10:48 Oxygen Delivery Method Room Air 04/18/23 10:48 BMI result Body Mass Index 28.0 Const General: healthy appearing, comfortable, no acute distress, alert and awake Orientation/consciousness: patient oriented x3 HEENT Head: Yes normal to inspection General nose exam: No nasal polyps present and No nasal discharge present Face and sinus: Yes sinuses nontender Mouth: oropharynx normal Throat: Yes posterior oropharynx normal Eyes General: appearance normal, both eyes and all related structures Neck Neck: Yes normal visual inspection, Yes no lymphadenopathy, Yes trachea midline and Yes no JVD Thyroid: Thyroid normal Chest Chest palpation & inspection: normal inspection of the chest, normal palpation of entire chest wall and no tenderness Resp Effort & Inspection: normal respiratory effort Auscultation: clear to auscultation bilaterally Percussion: percussion normal Cardio Palpation: normal PMI Rate: regular rate Rhythm: regular rhythm Heart sounds: no gallops and no murmurs GI Palpation (GI): Soft to palpation, nontender, No hepatosplenomegaly present and no masses Auscultation: normal bowel sounds Back/Spine/Pelvis Thoracic/Lumbar Spine: thoracic and lumbar spine normal to inspection Skin General skin exam: no rashes or lesions noted Neuro General: patient oriented x3 and no focal motor deficits Cranial nerves: Yes CN's II-XII intact bilaterally Extrem General: Yes normal to inspection, Yes no clubbing, cyanosis or edema and Yes no calf tenderness Psych Appearance: grossly normal and well kempt Speech and movement: Normal speech and movement present Assessment & Plan Assessment & Plan (1) Smoker: Comment: Patient continues to smoke , currently smoking about 15 cigarettes a day. I did talk to her if she can cut down to half pack a day and then gradually keep on cutting the number of cigarettes. She is well aware of the pros and cons. She continues to participate in Annual lung screening program. Code(s): F17.200 - Nicotine dependence, unspecified, uncomplicated (2) Allergic rhinitis: Comment: Very mild nasal symptoms, and uses Flonase only on a p.r.n. basis. Code(s): J30.9 - Allergic rhinitis, unspecified (3) Pulmonary nodules: Comment: (waxing/waning - in LDCT screening program) last CT scan in December 2021. She is instructed to make appointment for her screening this year. Code(s): R91.8 - Other nonspecific abnormal finding of lung field (4) COPD (chronic obstructive pulmonary disease): Comment: Last PFT on 08/29/2020 PFT: FEV1 85%, FVC 82%, FEV1/FVC 0.76, DLCO 49%, mod dec).. COPD is mild, she is essentially asymptomatic at this time No meds needed. Will be followed up Yearly and as needed . Code(s): J44.9 - Chronic obstructive pulmonary disease, unspecified Qualifiers: COPD type: unspecified COPD Qualified Code(s): J44.9 - Chronic obstructive pulmonary disease, unspecified Coding Level of Care Code Est Pt Level 3 (85094) Diagnoses Smoker F17.200 Allergic rhinitis J30.9 Pulmonary nodules R91.8 COPD (chronic obstructive pulmonary disease) J44.9 COPD type: unspecified COPD
[2023-04-18 10:48] VITALS: BP 128/68; PULSE 70; O2SAT 94; BMI 28.0
== END 2023-04-18 11:06 | disposition home or self-care (01) ==
PROVIDERS: PCP Internal Medicine; Visit Provider Internal Medicine
DX: F17.200 Nicotine dependence, unspecified, uncomplicated (principal); J30.9 Allergic rhinitis, unspecified; R91.8 Other nonspecific abnormal finding of lung field; J44.9 Chronic obstructive pulmonary disease, unspecified
CPT/HCPCS: 99213

== ENCOUNTER → 2023-04-18 10:44 | Outpatient (BNVA) | payer MEDICARE, SELFPAY | PROVIDERS: PCP Internal Medicine; Visit Provider Internal Medicine | DX: J44.9 Chronic obstructive pulmonary disease, unspecified (principal); J30.9 Allergic rhinitis, unspecified; R91.8 Other nonspecific abnormal finding of lung field; F17.210 Nicotine dependence, cigarettes, uncomplicated | CPT/HCPCS: 99212 ==

== ENCOUNTER 2023-09-24 06:01 | Outpatient (REF) | payer MEDICARE, SELFPAY ==
[2023-09-24 06:25] LABS: MANUAL DIFF FLAG NO
[2023-09-24 07:22] LABS: Basophils Percent Auto 0.6 % (0-2); Eosinophils Absolute Auto 0.1 X10*3/uL (0.0-0.4); Eosinophils Percent Auto 1.4 % (0-4); Hematocrit 48.8 % (37.0-47.0); Hemoglobin 16.6 g/dl (12.0-16.0); Imm Gran Abs Auto 0.02 X10*3/uL (0.00-0.03); Imm Gran Pct Auto 0.4 % (0.0-0.4); Lymphocytes Absolute Auto 1.3 X10*3/uL (1.2-4.9); Lymphocytes Percent Auto 25.3 % (20-40); Mean Corpuscular Hemoglobin 31.8 pg (27.0-33.0); Mean Corpuscular Volume 93.5 fL (80.0-98.0); Mean Platelet Volume 9.7 fL (9.4-12.3); Monocytes Absolute Auto 0.4 X10*3/uL (0.1-1.2); Monocytes Percent Auto 7.4 % (2-11); Neutrophils Absolute Auto 3.3 x10*3/uL (2.0-8.3); Neutrophils Percent Auto 64.9 % (45-73); Platelet Count 232 X10*3/uL (160-400); Red Blood Count 5.22 X10*6/uL (4.20-5.50); Red Cell Distribution Width 12.6 % (11.0-16.0)
[2023-09-24 08:02] LABS: Alanine Aminotransferase 13 U/L (0-31); Albumin Level 3.9 g/dL (3.5-5.0); Alkaline Phosphatase 55 U/L (39-117); Anion Gap 11 (12-20); Aspartate Amino Transferase 19 U/L (5-31); Bilirubin Total 0.5 mg/dL (0.0-1.0); Blood Urea Nitrogen 19 mg/dL (9-16); Calcium 9.5 mg/dL (8.4-10.2); Carbon Dioxide 27 mmol/L (22-29); Chloride 108 mmol/L (96-108); Cholesterol 162 mg/dL (<200); Estimated Glomerular Filt Rate > 60; Glucose Fasting 90 mg/dL (60-99); HDL Cholesterol 44 mg/dL (>40); LDL Cholesterol Calculated 101 mg/dL (<100); Potassium 4.2 mmol/L (3.3-5.1); Sodium 142 mmol/L (135-145); Total Protein 7.1 g/dL (6.5-8.0); Triglycerides 89 mg/dL (<150)
[2023-09-24 08:17] LABS: Ferritin 134 ng/mL (10-250); Vitamin D 25-OH Total 41.4 ng/mL (>30)
[2023-09-24 08:23] LABS: Folate 14.7 ng/mL (> or = 4.0); Vitamin B12 1078 pg/mL (200-900)
[2023-09-24 08:55] LABS: Appearance Urine Clear; Color Urine Yellow; Glucose Urine UA Negative (Negative); Leukocyte Esterase Urine Small (1+) (Negative); Nitrite Urine Negative (Negative); PH 5.5 (5.0-9.0); Specific Gravity - Urine 1.025 (1.005-1.025); UMIC TRIGGER UACC YES; Urine Blood Negative (Negative); Urine Ketones Negative (Negative); Urine Protein Negative (Neg-Trace)
[2023-09-24 09:28] LABS: Bacteria Urine Trace (None Seen); Calcium Oxalate Crystals Urine Present; Hyaline Casts Urine 0-2 /LPF (0-2); RBC Urine 0-2 /HPF (0-2); UACC Culture Trigger YES; WBC Urine 0-5 /HPF (0-5)
== END 2023-09-24 06:02 | disposition home or self-care (01) ==
LOC: HO.LAB 06:01
PROVIDERS: PCP Internal Medicine; Visit Provider Internal Medicine
DX: I10 Essential (primary) hypertension (principal); R30.0 Dysuria; E78.00 Pure hypercholesterolemia, unspecified; E53.8 Deficiency of other specified B group vitamins; E55.9 Vitamin D deficiency, unspecified; Z14.8 Genetic carrier of other disease
CPT/HCPCS: 36415; 80053; 80061; 81001; 82306; 82607; 82728; 82746; 85025; 87086

== ENCOUNTER 2023-10-07 09:01 | Outpatient (AMB) | payer MEDICARE, SELFPAY ==
[2023-10-07 09:05] VITALS: BP 136/80; PULSE 57; O2SAT 94; BMI 26.4
--- NOTE | 2023-10-07 09:05 | A.OFFPC_ITS ---
Vital Signs 10/07/23 09:05 Height 5 ft 2 in Weight 144 lb 4 oz BMI 26.4 BP 136/80 Blood Pressure Location Lt brachial Position Sitting Pulse 57 Pulse Source Pulse Oximeter Pulse Oximetry (%) 94 Oxygen Delivery Method Room Air Intake Visit Reasons: 6mon f/u In Mold Coater Required: No Accompanied by: Self / Same As Patient Allergies Sulfa (Sulfonamide Antibiotics) Allergy (Intermediate, Verified 10/07/23 09:59) RASH,HIVES,ITCHY Medication List - Last Reconciled 10/07/23 by Jorge L Schneider MD cyanocobalamin (vitamin B-12) 2,000 mcg PO DAILY multivitamin (Daily Multi-Vitamin tablet) 1 tab PO DAILY oxybutynin chloride ER 10 mg PO DAILY 90 days Tobacco use date assessed: 10/07/23 Fall risk assessment: No Falls in past year Last assessed Fall Risk: 10/07/23 Dental Screening Dental Screen Date: 10/07/23 Did you have a dental visit in the last 12 months?: Yes Did you have a dental problem in the last 6 months where you did not have access to dental care?: No Was dental information given to patient?: Patient has dentist HPI 6mon f/u HPI Details Patient comes in today for her follow up visit States that she feels okay She denies any headaches or dizziness Denies any chest pains, no increased SOB No nausea/vomiting, no abdominal pain No change in bowel habits noted She denies any acute urinary symptoms Had her follow up labs done a couple of weeks ago - to discuss her results [facility] Medical History Overweight (BMI 25.0-29.9) Smoker Personal history of nicotine dependence Overactive bladder Allergic rhinitis Hemochromatosis carrier Impaired fasting glucose Dyslipidemia Pulmonary nodules COPD (chronic obstructive pulmonary disease) Nicotine dependence, cigarettes, uncomplicated Surgical History History of cataract surgery History of breast biopsy History of excision of lesion History of colonoscopy Family History Mother Hemochromatosis Breast cancer Maternal Aunt Ovarian cancer Maternal Aunt Breast cancer Father Medical history unknown Social History Household Members: None Housing: House Alcohol intake: current Alcohol intake frequency: holidays/special occasions only Alcohol type: wine Patient Tobacco Use Status: Current everyday Tobacco user Tobacco use type: Cigarette Cigarette Packs Per Day: 1 Years Smoked: 60 e-Cigarette/Vaping Use: Never Used Second Hand Smoke Exposure: Yes service: No Current occupational status: retired Cognitive needs: No Hearing needs: No Vision needs: Yes Questionnaire PHQ-9 Over the last 2 weeks, how often have you been bothered by any of the following problems? 1. Little interest or pleasure in doing things: not at all 2. Feeling down, depressed, or hopeless: not at all 3. Trouble falling or staying asleep, or sleeping too much: not at all 4. Feeling tired or having little energy: not at all 5. Poor appetite or overeating: not at all 6. Feeling bad about yourself - or that you are a failure or have let yourself or your family down: not at all 7. Trouble concentrating on things, such as reading the newspaper or watching television: not at all 8. Moving or speaking so slowly that other people could have noticed. Or the opposite - being so fidgety or restless that you have been moving around a lot more than usual: not at all 9. Thoughts that you would be better off or of hurting yourself in some way: not at all Total score: 0 Depression Screening Interpretation: Negative Depression Screening Done: Yes 13170 - PHQ-9 Billing: Yes Source: Developed by Drs. Bruno Day, Roxie Fam, Palmer Edwards and colleagues, with an educational alina from [employer]. Thrive Questionnaire Date Thrive assessed: 10/07/23 I am a: Patient What is your living situation today?: I have a steady place to live Within the past 12 months, did the food you bought not last and you didn't have the money to get more?: Never true Within the past 12 months, did you worry whether your food would run out before you got money to buy more?: Never true Do you have trouble paying for medicines?: No Do you have trouble getting transportation to medical appointments?: No Do you have trouble paying your heating and electricity bill?: No Do you have trouble taking care of your child, family member or friend?: No Do you have trouble with day-to-day activities such as bathing, preparing meals, shopping, managing finances, etc.?: No Are you currently unemployed and looking for a job?: No Are you interested in more education?: No Please select the resources that you would like help with: None Currently or been in a relationship where the following occur: no concerns reported THRIVE Score: 0 AUDIT C Alcohol Use Questionnaire (AUDIT-C) 1. How often do you have a drink containing alcohol?: Never 2. How many drinks containing alcohol do you have on a typical day when you are drinking?: 1 or 2 3. How often do you have six or more drinks on one occasion?: Never Total Score: 0 Score Reviewed/Action Taken: Yes EBTY-7 AMB Questionnaire BETY-7 Date BETY - 7 assessed: 10/07/23 Feeling nervous, anxious, or on edge: 0 = Not at all Not being able to stop or control worryin = Not at all Worrying too much about different things: 0 = Not at all Trouble relaxin = Not at all Being so restless that it is hard to sit still: 0 = Not at all Becoming easily annoyed or irritable: 0 = Not at all Feeling afraid as if something awful might happen: 0 = Not at all Total BETY-7 score (0-4 normal; 5-9 mild; 10-14 moderate; 15-21 severe): 0 Source: Developed by Drs. Bruno Day, Roxie Fam, Palmer Edwards and colleagues, with an educational alina from [employer]. Review of Systems Const Denies chills, Denies fatigue, Denies fever(s) and Denies headache(s) ENT Denies dysphagia, Denies dizziness, Denies otalgia, Denies headache(s), Denies neck pain, Denies odynophagia and Denies sore throat Card Denies chest pain, Denies palpitations and Denies dyspnea Resp Denies cough, Denies dyspnea and Denies wheezing GI Denies abdominal pain, Denies constipation, Denies dysphagia, Denies heartburn, Denies diarrhea, Denies nausea, Denies odynophagia and Denies vomiting Denies difficulty voiding, Reports nocturia (symptoms have improved a lot with Rx), Denies dysuria and Reports urinary incontinence (at times - improved with Rx) Musc Denies neck pain Skin/Breast Denies rash Neuro Denies dizziness and Denies headache(s) Endo Denies fatigue and Denies palpitations Aller/Immun Denies wheezing Physical exam (Primary Care) Vital Signs: Last Vital Signs Pulse 57 10/07/23 09:05 BP 136/80 10/07/23 09:05 Pulse Ox 94 10/07/23 09:05 Oxygen Delivery Method Room Air 10/07/23 09:05 BMI result Body Mass Index 26.4 Tobacco/Smoking Status: Tobacco use Status Tobacco use date assessed 10/07/23 10/07/23 09:07 Patient Tobacco Use Status Current everyday Tobacco 10/07/23 09:07 Tobacco use type Cigarette 10/07/23 09:07 e-Cigarette/Vaping Use Never Used 10/07/23 09:07 PHQ-9: PHQ-9 Score PHQ-9: Total score 0 10/07/23 10:00 Depression Screening Interpretation: Negative Thrive Assessment: Date of Thrive Assessment Date Thrive assessed 10/07/23 10/07/23 09:07 Currently or been in a relationship where the following occur: no concerns reported Const General: no acute distress and alert HENMT Ears: TM's normal bilaterally and EAC's normal Throat: Yes posterior oropharynx normal and Yes tonsils normal (no TP congestion noted) Neck Neck: Yes no lymphadenopathy and Yes supple Resp Auscultation: clear to auscultation bilaterally, no rales and no wheezes Cardio Rate: regular rate Rhythm: regular rhythm Heart sounds: no murmurs GI Palpation (GI): Soft to palpation and nontender Auscultation: normal bowel sounds Extrem General: Yes no clubbing, cyanosis or edema Results Reviewed Results Reviewed: Laboratory Tests 09/24/23 09/24/23 09/24/23 06:07 06:07 06:19 WBC 5.0 Hgb 16.6 H Hct 48.8 H Plt Count 232 Sodium 142 Potassium 4.2 Creatinine 0.85 Estimated GFR > 60 Fasting Glucose Calcium 9.5 AST 19 ALT 13 Triglycerides 89 Cholesterol 162 LDL Cholesterol, Calc 101 H HDL Cholesterol 44 Vitamin B12 1078 H 25-OH Vitamin D Total 41.4 Ur Specific [place] 1.025 Urine Protein Negative Urine Glucose (UA) Negative Urine Blood Negative 09/24/23 06:19 WBC Hgb Hct Plt Count Sodium Potassium Creatinine Estimated GFR Fasting Glucose 90 Calcium AST ALT Triglycerides Cholesterol LDL Cholesterol, Calc HDL Cholesterol Vitamin B12 25-OH Vitamin D Total Ur Specific [place] Urine Protein Urine Glucose (UA) Urine Blood Assessment and Plan Assessment & Plan (1) COPD (chronic obstructive pulmonary disease): Comment: Last PFT on 08/29/2020 PFT: FEV1 85%, FVC 82%, FEV1/FVC 0.76, DLCO 49%, mod dec).. COPD is mild, she is essentially asymptomatic at this time No meds needed. Will be followed up Yearly and as needed . Code(s): J44.9 - Chronic obstructive pulmonary disease, unspecified Qualifiers: COPD type: unspecified COPD Qualified Code(s): J44.9 - Chronic obstructive pulmonary disease, unspecified Plan: Chest CT done in 2019 showed findings of pulmonary emphysema Patient states that she feels well and reports no symptoms of SOB or [place] at any time Per pulmonary, patient's COPD is mild and she still does NOT require any Rx at present Follow up with pulmonary (Dr. Amador) as scheduled (2) Dyslipidemia: Code(s): E78.5 - Hyperlipidemia, unspecified Plan: Results of her labs done a couple of weeks ago reviewed and discussed with patient Reinforced low cholesterol diet Will recheck her labs and fasting lipids in 6 months for follow up (3) Hemochromatosis carrier: Comment: She is a carrier, last hemoglobin 16.6, Being followed by Hematology Code(s): Z14.8 - Genetic carrier of other disease Plan: Follow up with hematology/oncology (Dr. Smith/Andriy) as scheduled - is now seen once a year Continue Phlebotomy every 2 to 3 months / as needed - patient states that she has not gone for phlebotomy in the past couple of years Her most recent H/H was at 16.6/48.8 about 2 weeks ago Will continue to monitor her CBC regularly (4) Impaired fasting glucose: Code(s): R73.01 - Impaired fasting glucose Plan: HgbA1c has been normal at 5.3% when previously checked; her FBS was normal at 90 mg/dl on her labs from 2 weeks ago Reinforced low calorie diet/exercise as tolerated (5) Overactive bladder: Code(s): N32.81 - Overactive bladder Plan: Notes (+) significant improvement of her OAD symptoms with Rx Continue Oxybutynin ER 10 mg QD (6) Smoker: Comment: Patient continues to smoke , currently smoking about 15 cigarettes a day. I did talk to her if she can cut down to half pack a day and then gradually keep on cutting the number of cigarettes. She is well aware of the pros and cons. She continues to participate in Annual lung screening program. Code(s): F17.200 - Nicotine dependence, unspecified, uncomplicated Plan: Counseled again on smoking cessation (7) Overweight (BMI 25.0-29.9): Code(s): E66.3 - Overweight Plan: Reinforced diet/exercise as tolerated/lose weight Plan Follow up in 6 months Orders: Orders Comprehensive [place]. Panel Fast 6 Months E78.00 - Pure hypercholesterolemia, unspecified UA CC w/rflx Micro + Cult 6 Months R30.0 - Dysuria Vitamin B12 and Folate 6 Months E53.8 - Deficiency of other specified B group vitamins Complete Blood Count Auto Diff 6 Months D64.9 - Anemia, unspecified Lipid Panel 6 Months E78.00 - Pure hypercholesterolemia, unspecified TSH reflex Free T4 6 Months E78.00 - Pure hypercholesterolemia, unspecified Vitamin D 25-OH Total 6 Months E55.9 - Vitamin D deficiency, unspecified Coding Level of Care Code Est Pt Level 4 (62218) Diagnoses Chronic obstructive pulmonary disease, unspecified COPD type J44.9 COPD type: unspecified COPD Dyslipidemia E78.5 Hemochromatosis carrier Z14.8 Impaired fasting glucose R73.01 Overactive bladder N32.81 Smoker F17.200 Overweight (BMI 25.0-29.9) E66.3
== END 2023-10-07 10:07 | disposition home or self-care (01) ==
PROVIDERS: PCP Internal Medicine; Visit Provider Internal Medicine
DX: J44.9 Chronic obstructive pulmonary disease, unspecified (principal); E78.5 Hyperlipidemia, unspecified; Z14.8 Genetic carrier of other disease; R73.01 Impaired fasting glucose; N32.81 Overactive bladder; F17.200 Nicotine dependence, unspecified, uncomplicated; E66.3 Overweight
CPT/HCPCS: 99214

== ENCOUNTER 2023-10-31 08:08 | Outpatient (REF) | payer MEDICARE, SELFPAY | END 2023-10-31 08:09 | disposition home or self-care (01) | LOC: HO.MAMMO 08:08 | PROVIDERS: PCP Internal Medicine; Visit Provider Internal Medicine | DX: Z12.31 Encounter for screening mammogram for malignant neoplasm of breast (principal) | CPT/HCPCS: 77063; 77067 ==

== ENCOUNTER → 2023-10-31 08:15 | Outpatient (BNV) | payer MEDICARE, SELFPAY | PROVIDERS: PCP Internal Medicine; Visit Provider Radiology Diagnostic Radiology | DX: Z12.31 Encounter for screening mammogram for malignant neoplasm of breast (principal) | CPT/HCPCS: 77063; 77067 ==

== ENCOUNTER 2024-05-07 09:57 | Outpatient (AMB) | payer MEDICARE, SELFPAY ==
--- NOTE | 2024-05-07 10:08 | A.OFFVIS_ITS ---
Vital Signs 05/07/24 10:09 Height 5 ft 2 in Weight 144 lb 6.444 oz BMI 26.4 BP 110/60 Blood Pressure Location Lt brachial Position Sitting Pulse 58 Pulse Source Pulse Oximeter Pulse Oximetry (%) 95 Oxygen Delivery Method Room Air Intake Visit Reasons: COPD Intake Note: pt is here for follow up and states she is only short of breath on stairs. 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 She has history of smoking, has mild intermittent cough. She has no shortness of breath at level ground but slight shortness of breath when she climbs 1 flight of stairs. She is not needing to use any bronchodilator inhaler. Luckily she has had no recurrent respiratory infection. She was being followed by small pulmonary nodules Last low-dose CT scan was in 2021 which did show multiple small nodules, she was supposed to have follow-up CT scan at short.. Because of her age she does not qualify to participate in annual lung screening program. As we have talked to her about getting a regular CT scan of the chest, she has been reluctant because of a significant co-payment that she will have to make. She is inclined to leave it alone. She still smokes 1 or 2 cigarettes a day, [facility] Medical History Overweight (BMI 25.0-29.9) Smoker Personal history of nicotine dependence Overactive bladder Allergic rhinitis Hemochromatosis carrier Impaired fasting glucose Dyslipidemia Pulmonary nodules COPD (chronic obstructive pulmonary disease) Nicotine dependence, cigarettes, uncomplicated Surgical History History of cataract surgery History of breast biopsy History of excision of lesion History of colonoscopy Family History Mother Hemochromatosis Breast cancer Maternal Aunt Ovarian cancer Maternal Aunt Breast cancer Father Medical history unknown Social History Household Members: None Housing: House Alcohol intake: current Alcohol intake frequency: holidays/special occasions only Alcohol type: wine Patient Tobacco Use Status: Current everyday Tobacco user Tobacco use type: Cigarette Cigarette Packs Per Day: 1 Years Smoked: 60 e-Cigarette/Vaping Use: Never Used Second Hand Smoke Exposure: Yes service: No Current occupational status: retired Cognitive needs: No Hearing needs: No Vision needs: Yes Review of Systems Const All systems reviewed & are unremarkable except as noted in HPI and below Eyes Reports other (HAS MACULAR DEGENERATION, GETTING INJECTION ONCE A MONTH.) ENT Details: Reports no additional complaints Card Denies chest pain, Denies irregular heart rhythm and Denies leg edema Resp Reports as per HPI GI Reports no additional complaints Reports urinary incontinence (CONTROLLED WITH OXYBUTYNIN CHLORIDE) Musc Reports no additional complaints Skin/Breast Reports system reviewed and no additional complaints, except as documented Neuro Reports no additional complaints Psych Reports no additional complaints Endo Reports no additional complaints Physical Exam Vital Signs: Last Vital Signs Pulse 58 05/07/24 10:09 BP 110/60 05/07/24 10:09 Pulse Ox 95 05/07/24 10:09 Oxygen Delivery Method Room Air 05/07/24 10:09 BMI result Body Mass Index 26.4 Const General: healthy appearing, comfortable, no acute distress, alert and awake Orientation/consciousness: patient oriented x3 HEENT Head: Yes normal to inspection General nose exam: No nasal polyps present and No nasal discharge present Face and sinus: Yes sinuses nontender Mouth: oropharynx normal Throat: Yes posterior oropharynx normal Eyes General: appearance normal, both eyes and all related structures Neck Neck: Yes normal visual inspection, Yes no lymphadenopathy, Yes trachea midline and Yes no JVD Thyroid: Thyroid normal Chest Chest palpation & inspection: normal inspection of the chest, normal palpation of entire chest wall and no tenderness Resp Effort & Inspection: normal respiratory effort Auscultation: clear to auscultation bilaterally Percussion: percussion normal Cardio Palpation: normal PMI Rate: regular rate Rhythm: regular rhythm Heart sounds: no gallops and no murmurs GI Palpation (GI): Soft to palpation, nontender, No hepatosplenomegaly present and no masses Auscultation: normal bowel sounds Back/Spine/Pelvis Thoracic/Lumbar Spine: thoracic and lumbar spine normal to inspection Skin General skin exam: no rashes or lesions noted Neuro General: patient oriented x3 and no focal motor deficits Cranial nerves: Yes CN's II-XII intact bilaterally Extrem General: Yes normal to inspection, Yes no clubbing, cyanosis or edema and Yes no calf tenderness Psych Appearance: grossly normal and well kempt Speech and movement: Normal speech and movement present Assessment & Plan Assessment & Plan (1) Smoker: Comment: Patient continues to smoke , but has cut it weight down. Only smoking 1 or 2 c igarettes a day. Code(s): F17.200 - Nicotine dependence, unspecified, uncomplicated Category: Social Hx Plan: Talked to her to quit completely, or keep it no more than 1 or 2 cigarettes a day. (2) Allergic rhinitis: Comment: Very mild nasal symptoms, and uses Flonase only on a p.r.n. basis. Code(s): J30.9 - Allergic rhinitis, unspecified Category: Medical Plan: OK to use Flonase nasal spray p.r.n. (3) COPD (chronic obstructive pulmonary disease): Comment: Last PFT on 08/29/2020 PFT: FEV1 85%, FVC 82%, FEV1/FVC 0.76, DLCO 49%, mod dec).. COPD is mild, she is essentially asymptomatic at this time Code(s): J44.9 - Chronic obstructive pulmonary disease, unspecified Category: Medical Qualifiers: COPD type: unspecified COPD Qualified Code(s): J44.9 - Chronic obstructive pulmonary disease, unspecified Plan: She does not need to use any bronchodilator inhalers. To be seen once a year, but call us if there is any acute infection or worsening of respiratory symptoms. (4) Pulmonary nodules: Comment: (waxing/waning - in LDCT screening program) last CT scan in December 2021. We have talked to her about having a regular CT scan of the chest, as she does not qualify for the LDCT program. She has declined to have regular CT because of the mark issue. Code(s): R91.8 - Other nonspecific abnormal finding of lung field Category: Medical Plan: I again talked to her about having at least [address] scan of the chest. She is going to check with her insurance and find out how much she will have to pay [id number], if it is affordable then she will let us know. Coding Level of Care Code Est Pt Level 3 (41034) Diagnoses Smoker F17.200 Allergic rhinitis J30.9 Chronic obstructive pulmonary disease, unspecified COPD type J44.9 COPD type: unspecified COPD Pulmonary nodules R91.8
[2024-05-07 10:09] VITALS: BP 110/60; PULSE 58; O2SAT 95; BMI 26.4
== END 2024-05-07 10:33 | disposition home or self-care (01) ==
PROVIDERS: PCP Internal Medicine; Visit Provider Internal Medicine
DX: F17.200 Nicotine dependence, unspecified, uncomplicated (principal); J30.9 Allergic rhinitis, unspecified; J44.9 Chronic obstructive pulmonary disease, unspecified; R91.8 Other nonspecific abnormal finding of lung field
CPT/HCPCS: 99213

== ENCOUNTER → 2024-05-07 09:57 | Outpatient (BNVA) | payer MEDICARE, SELFPAY | PROVIDERS: PCP Internal Medicine; Visit Provider Internal Medicine | DX: J44.9 Chronic obstructive pulmonary disease, unspecified (principal); J30.9 Allergic rhinitis, unspecified; R91.8 Other nonspecific abnormal finding of lung field; F17.210 Nicotine dependence, cigarettes, uncomplicated | CPT/HCPCS: 99212 ==

== ENCOUNTER 2024-05-25 05:59 | Outpatient (REF) | payer MEDICARE, SELFPAY ==
[2024-05-25 06:18] LABS: MANUAL DIFF FLAG NO
[2024-05-25 07:23] LABS: Basophils Percent Auto 0.4 % (0-2); Eosinophils Absolute Auto 0.1 X10*3/uL (0.0-0.4); Eosinophils Percent Auto 1.8 % (0-4); Hematocrit 47.4 % (37.0-47.0); Hemoglobin 15.9 g/dl (12.0-16.0); Imm Gran Abs Auto 0.01 X10*3/uL (0.00-0.03); Imm Gran Pct Auto 0.2 % (0.0-0.4); Lymphocytes Absolute Auto 1.5 X10*3/uL (1.2-4.9); Lymphocytes Percent Auto 29.4 % (20-40); Mean Corpuscular HGB Conc 33.5 g/dl (31.0-35.0); Mean Corpuscular Hemoglobin 31.4 pg (27.0-33.0); Mean Corpuscular Volume 93.7 fL (80.0-98.0); Mean Platelet Volume 9.7 fL (9.4-12.3); Monocytes Absolute Auto 0.4 X10*3/uL (0.1-1.2); Monocytes Percent Auto 7.8 % (2-11); Neutrophils Absolute Auto 3.1 x10*3/uL (2.0-8.3); Neutrophils Percent Auto 60.4 % (45-73); Platelet Count 237 X10*3/uL (160-400); Red Blood Count 5.06 X10*6/uL (4.20-5.50); Red Cell Distribution Width 12.6 % (11.0-16.0); White Blood Count 5.1 X10*3/uL (4.8-10.8)
[2024-05-25 07:55] LABS: Alanine Aminotransferase 13 U/L (0-31); Alkaline Phosphatase 50 U/L (39-117); Anion Gap 11 (12-20); Aspartate Amino Transferase 18 U/L (5-31); Bilirubin Total 0.5 mg/dL (0.0-1.0); Blood Urea Nitrogen 16 mg/dL (9-16); Calcium 9.4 mg/dL (8.4-10.2); Carbon Dioxide 26 mmol/L (22-29); Chloride 110 mmol/L (96-108); Cholesterol 159 mg/dL (<200); Estimated Glomerular Filt Rate > 60; Glucose Fasting 106 mg/dL (60-99); HDL Cholesterol 43 mg/dL (>40); LDL Cholesterol Calculated 104 mg/dL (<100); Potassium 4.2 mmol/L (3.3-5.1); Sodium 143 mmol/L (135-145); Total Protein 7.1 g/dL (6.5-8.0); Triglycerides 60 mg/dL (<150)
[2024-05-25 08:00] LABS: TSH reflex Free T4 0.88 uIU/mL (0.32-4.0); Vitamin D 25-OH Total 46.6 ng/mL (>30)
[2024-05-25 08:07] LABS: Appearance Urine Clear; Color Urine Dark Yellow; Glucose Urine UA Negative (Negative); Leukocyte Esterase Urine Moderate (2+) (Negative); Nitrite Urine Negative (Negative); PH 5.5 (5.0-9.0); Specific Gravity - Urine 1.025 (1.005-1.025); UMIC TRIGGER UACC YES; Urine Blood Negative (Negative); Urine Ketones Negative (Negative); Urine Protein Negative (Neg-Trace)
[2024-05-25 08:14] LABS: Bacteria Urine None Seen (None Seen); Hyaline Casts Urine 0-2 /LPF (0-2); RBC Urine 0-2 /HPF (0-2); UACC Culture Trigger YES
[2024-05-25 08:16] LABS: Folate 15.6 ng/mL (> or = 4.0); Vitamin B12 1600 pg/mL (200-900)
== END 2024-05-25 06:00 | disposition home or self-care (01) ==
LOC: HO.LAB 05:59
PROVIDERS: PCP Internal Medicine; Visit Provider Internal Medicine
DX: R30.0 Dysuria (principal); D64.9 Anemia, unspecified; E78.00 Pure hypercholesterolemia, unspecified; E55.9 Vitamin D deficiency, unspecified; E53.8 Deficiency of other specified B group vitamins
CPT/HCPCS: 36415; 80053; 80061; 81001; 81003; 82306; 82607; 82746; 84443; 85025; 87086

== ENCOUNTER 2024-06-02 14:36 | Outpatient (AMB) | payer MEDICARE, SELFPAY ==
[2024-06-02 14:37] VITALS: BP 110/82; PULSE 89; O2SAT 92; BMI 25.9
--- NOTE | 2024-06-02 14:37 | A.OFFPC_ITS ---
Vital Signs 06/02/24 14:37 Height 5 ft 2 in Weight 141 lb 8 oz BMI 25.9 BP 110/82 Blood Pressure Location Lt brachial Position Sitting Pulse 89 Pulse Source Pulse Oximeter Pulse Oximetry (%) 92 Oxygen Delivery Method Room Air Intake Visit Reasons: 6 Month F/U Medical/Surgery Registered Nurse Required: No Accompanied by: Self / Same As Patient Allergies Sulfa (Sulfonamide Antibiotics) Allergy (Intermediate, Verified 06/02/24 15:18) RASH,HIVES,ITCHY Medication List - Last Reconciled 06/02/24 by Jorge L Schneider MD cyanocobalamin (vitamin B-12) 2,000 mcg PO DAILY multivitamin (Daily Multi-Vitamin tablet) 1 tab PO DAILY oxybutynin chloride ER 15 mg PO DAILY 90 days Tobacco use date assessed: 06/02/24 Fall risk assessment: No Falls in past year Last assessed Fall Risk: 06/02/24 Dental Screening Dental Screen Date: 06/02/24 Did you have a dental visit in the last 12 months?: Yes Did you have a dental problem in the last 6 months where you did not have access to dental care?: No Was dental information given to patient?: Patient has dentist HPI 6 Month F/U HPI Details Patient comes in today for her follow up visit States that she feels okay She denies any headaches or dizziness Denies any chest pains, no increased SOB No nausea/vomiting, no abdominal pain No change in bowel habits noted She had her follow up labs done last week - to discuss her results [facility] Medical History Overweight (BMI 25.0-29.9) Smoker Personal history of nicotine dependence Overactive bladder Allergic rhinitis Hemochromatosis carrier Impaired fasting glucose Dyslipidemia Pulmonary nodules COPD (chronic obstructive pulmonary disease) Nicotine dependence, cigarettes, uncomplicated Surgical History History of cataract surgery History of breast biopsy History of excision of lesion History of colonoscopy Family History Mother Hemochromatosis Breast cancer Maternal Aunt Ovarian cancer Maternal Aunt Breast cancer Father Medical history unknown Social History Household Members: None Housing: House Alcohol intake: current Alcohol intake frequency: holidays/special occasions only Alcohol type: wine Patient Tobacco Use Status: Current everyday Tobacco user Tobacco use type: Cigarette Cigarette Packs Per Day: 1 Years Smoked: 60 e-Cigarette/Vaping Use: Never Used Second Hand Smoke Exposure: Yes service: No Current occupational status: retired Cognitive needs: No Hearing needs: No Vision needs: Yes Questionnaire PHQ-9 Over the last 2 weeks, how often have you been bothered by any of the following problems? 1. Little interest or pleasure in doing things: not at all 2. Feeling down, depressed, or hopeless: not at all 3. Trouble falling or staying asleep, or sleeping too much: not at all 4. Feeling tired or having little energy: not at all 5. Poor appetite or overeating: not at all 6. Feeling bad about yourself - or that you are a failure or have let yourself or your family down: not at all 7. Trouble concentrating on things, such as reading the newspaper or watching television: not at all 8. Moving or speaking so slowly that other people could have noticed. Or the opposite - being so fidgety or restless that you have been moving around a lot more than usual: not at all 9. Thoughts that you would be better off or of hurting yourself in some way: not at all Total score: 0 Depression Screening Interpretation: Negative Depression Screening Done: Yes 10456 - PHQ-9 Billing: Yes Source: Developed by Drs. Bruno Day, Roxie Fam, Palmer Edwards and colleagues, with an educational alina from [employer]. Thrive Questionnaire Date Thrive assessed: 06/02/24 I am a: Patient What is your living situation today?: I have a steady place to live Within the past 12 months, did the food you bought not last and you didn't have the money to get more?: Never true Within the past 12 months, did you worry whether your food would run out before you got money to buy more?: Never true Do you have trouble paying for medicines?: No Do you have trouble getting transportation to medical appointments?: No Do you have trouble paying your heating and electricity bill?: No Do you have trouble taking care of your child, family member or friend?: No Do you have trouble with day-to-day activities such as bathing, preparing meals, shopping, managing finances, etc.?: No Are you currently unemployed and looking for a job?: No Are you interested in more education?: No Please select the resources that you would like help with: None Currently or been in a relationship where the following occur: No concerns reported THRIVE Score: 0 AUDIT C Alcohol Use Questionnaire (AUDIT-C) 1. How often do you have a drink containing alcohol?: Never 2. How many drinks containing alcohol do you have on a typical day when you are drinking?: 1 or 2 3. How often do you have six or more drinks on one occasion?: Never Total Score: 0 Score Reviewed/Action Taken: Yes BETY-7 AMB Questionnaire BETY-7 Date BETY - 7 assessed: 06/02/24 Feeling nervous, anxious, or on edge: 0 = Not at all Not being able to stop or control worryin = Not at all Worrying too much about different things: 0 = Not at all Trouble relaxin = Not at all Being so restless that it is hard to sit still: 0 = Not at all Becoming easily annoyed or irritable: 0 = Not at all Feeling afraid as if something awful might happen: 0 = Not at all Total BETY-7 score (0-4 normal; 5-9 mild; 10-14 moderate; 15-21 severe): 0 Source: Developed by Drs. Bruno Day, Roxie Fam, Palmer Edwards and colleagues, with an educational alina from [employer]. Review of Systems Const Denies chills, Denies fatigue, Denies fever(s) and Denies headache(s) ENT Denies dysphagia, Denies dizziness, Denies otalgia, Denies headache(s), Denies neck pain, Denies odynophagia and Denies sore throat Card Denies chest pain, Denies palpitations and Denies dyspnea Resp Denies chest congestion, Denies cough, Denies dyspnea and Denies wheezing GI Denies abdominal pain, Denies constipation, Denies dysphagia, Denies heartburn, Denies diarrhea, Denies nausea, Denies odynophagia and Denies vomiting Denies difficulty voiding, Reports nocturia (symptoms have improved a lot with Rx), Denies dysuria and Reports urinary incontinence (at times - improved with Rx) Musc Denies neck pain Skin/Breast Denies rash Neuro Denies dizziness and Denies headache(s) Endo Denies fatigue and Denies palpitations Aller/Immun Denies wheezing Physical exam (Primary Care) Vital Signs: Last Vital Signs Pulse 89 06/02/24 14:37 BP 110/82 06/02/24 14:37 Pulse Ox 92 06/02/24 14:37 Oxygen Delivery Method Room Air 06/02/24 14:37 BMI result Body Mass Index 25.9 Tobacco/Smoking Status: Tobacco use Status Tobacco use date assessed 06/02/24 06/02/24 14:43 Patient Tobacco Use Status Current everyday Tobacco 06/02/24 14:43 Tobacco use type Cigarette 06/02/24 14:43 e-Cigarette/Vaping Use Never Used 06/02/24 14:43 PHQ-9: PHQ-9 Score PHQ-9: Total score 0 06/02/24 15:41 Depression Screening Interpretation: Negative Thrive Assessment: Date of Thrive Assessment Date Thrive assessed 06/02/24 06/02/24 14:43 Currently or been in a relationship where the following occur: No concerns reported Const General: no acute distress and alert HENMT Ears: TM's normal bilaterally and EAC's normal Throat: Yes posterior oropharynx normal and Yes tonsils normal (no TP congestion noted) Neck Neck: Yes no lymphadenopathy and Yes supple Thyroid: Thyroid normal Resp Auscultation: clear to auscultation bilaterally, no rales and no wheezes Cardio Rate: regular rate Rhythm: regular rhythm Heart sounds: no murmurs GI Palpation (GI): Soft to palpation and nontender Auscultation: normal bowel sounds General: Yes no CVA tenderness Back/Spine/Pelvis Back: no CVA tenderness Thoracic/Lumbar Spine: No lumbar spinal tenderness Skin Rashes: no rashes Extrem General: Yes no clubbing, cyanosis or edema Results Reviewed Results Reviewed: Laboratory Tests 05/25/24 05/25/24 06:16 Unknown WBC 5.1 Hgb 15.9 Hct 47.4 H Plt Count 237 Sodium 143 Potassium 4.2 Creatinine 0.85 Estimated GFR > 60 Fasting Glucose 106 H Calcium 9.4 AST 18 ALT 13 Triglycerides 60 Cholesterol 159 LDL Cholesterol, Calc 104 H HDL Cholesterol 43 Vitamin B12 1600 H 25-OH Vitamin D Total 46.6 TSH 0.88 Ur Specific [place] 1.025 Urine Protein Negative Urine Glucose (UA) Negative Urine Blood Negative Urine Nitrite Negative Ur Leukocyte Esterase Moderate (2+) H Coding Level of Care Code Est Pt Level 4 (23371) Diagnoses Chronic obstructive pulmonary disease, unspecified COPD type J44.9 COPD type: unspecified COPD Dyslipidemia E78.5 Hemochromatosis carrier Z14.8 Impaired fasting glucose R73.01 Overactive bladder N32.81 Smoker F17.200 Overweight (BMI 25.0-29.9) E66.3 Assessment & Plan Assessment & Plan (1) COPD (chronic obstructive pulmonary disease): Comment: Last PFT on 08/29/2020 PFT: FEV1 85%, FVC 82%, FEV1/FVC 0.76, DLCO 49%, mod dec).. COPD is mild, she is essentially asymptomatic at this time Code(s): J44.9 - Chronic obstructive pulmonary disease, unspecified Category: Medical Qualifiers: COPD type: unspecified COPD Qualified Code(s): J44.9 - Chronic obstructive pulmonary disease, unspecified Plan: Chest CT done in 2019 showed findings of pulmonary emphysema Patient states that she feels well and reports no symptoms of SOB or [place] at any time Per pulmonary, patient's COPD is mild and she still does NOT require any Rx at present Follow up with pulmonary (Dr. Amador) as scheduled (2) Dyslipidemia: Code(s): E78.5 - Hyperlipidemia, unspecified Category: Medical Plan: Results of her labs done last week reviewed and discussed with patient Reinforced low cholesterol diet Will recheck her labs and fasting lipids in 6 months for follow up (3) Hemochromatosis carrier: Comment: She is a carrier, last hemoglobin 16.6, Being followed by Hematology Code(s): Z14.8 - Genetic carrier of other disease Category: Medical Plan: Follow up with hematology/oncology (Dr. Smith/Andriy) as scheduled - she is now seen just once a year Continue Phlebotomy every 2 to 3 months / as needed - patient states that she has not needed to go for phlebotomy in the past couple of years Her most recent H/H was at 15.9/47.4 last week Will continue to monitor her CBC regularly (4) Impaired fasting glucose: Code(s): R73.01 - Impaired fasting glucose Category: Medical Plan: Her FBS was at 106 mg/dl on her labs done last week HgbA1c has been normal at 5.3% when previously checked Reinforced low calorie/low carb diet; exercise as tolerated (5) Overactive bladder: Code(s): N32.81 - Overactive bladder Category: Medical Plan: Patient states that her urinary symptoms have improved significantly with her Rx Continue Oxybutynin ER 10 mg QD (6) Smoker: Comment: Patient continues to smoke , but has cut it weight down. Only smoking 1 or 2 cigarettes a day. Code(s): F17.200 - Nicotine dependence, unspecified, uncomplicated Category: Social Hx Plan: She is counseled again on smoking cessation (7) Overweight (BMI 25.0-29.9): Code(s): E66.3 - Overweight Category: Medical Plan: Reinforced diet/exercise as tolerated/lose weight Plan Follow up in 6 months Orders: Orders Comprehensive [place]. Panel Fast 6 Months E78.00 - Pure hypercholesterolemia, unspecified Lipid Panel 6 Months E78.00 - Pure hypercholesterolemia, unspecified Complete Blood Count Auto Diff 6 Months D64.9 - Anemia, unspecified
== END 2024-06-02 15:25 | disposition home or self-care (01) ==
PROVIDERS: PCP Internal Medicine; Visit Provider Internal Medicine
DX: J44.9 Chronic obstructive pulmonary disease, unspecified (principal); E78.5 Hyperlipidemia, unspecified; Z14.8 Genetic carrier of other disease; R73.01 Impaired fasting glucose; N32.81 Overactive bladder; F17.200 Nicotine dependence, unspecified, uncomplicated; E66.3 Overweight

== ENCOUNTER → 2024-06-02 14:36 | Outpatient (BNVA) | payer MEDICARE, SELFPAY | PROVIDERS: PCP Internal Medicine; Visit Provider Internal Medicine | DX: J44.9 Chronic obstructive pulmonary disease, unspecified (principal); E78.5 Hyperlipidemia, unspecified; R73.01 Impaired fasting glucose; N32.81 Overactive bladder; E66.3 Overweight; Z68.25 Body mass index [BMI] 25.0-25.9, adult; F17.200 Nicotine dependence, unspecified, uncomplicated; Z71.6 Tobacco abuse counseling; Z71.3 Dietary counseling and surveillance | CPT/HCPCS: 96127; 99212 ==

== ENCOUNTER 2024-06-25 07:44 | Outpatient (REF) | payer MEDICARE, SELFPAY | END 2024-06-25 07:45 | disposition home or self-care (01) | LOC: HO.CT 07:44 | PROVIDERS: PCP Internal Medicine; Visit Provider Internal Medicine | DX: R91.8 Other nonspecific abnormal finding of lung field (principal); F17.210 Nicotine dependence, cigarettes, uncomplicated | CPT/HCPCS: 71250 ==

== ENCOUNTER 2024-11-05 08:06 | Outpatient (REF) | payer MEDICARE, SELFPAY | END 2024-11-05 08:07 | disposition home or self-care (01) | LOC: HO.MAMMO 08:06 | PROVIDERS: PCP Internal Medicine; Visit Provider Internal Medicine | DX: Z12.31 Encounter for screening mammogram for malignant neoplasm of breast (principal) | CPT/HCPCS: 77063; 77067 ==

== ENCOUNTER → 2024-11-05 08:15 | Outpatient (BNV) | payer MEDICARE, SELFPAY | PROVIDERS: PCP Internal Medicine; Visit Provider Internal Medicine | DX: Z12.31 Encounter for screening mammogram for malignant neoplasm of breast (principal) | CPT/HCPCS: 77063; 77067 ==

== ENCOUNTER 2024-11-26 06:05 | Outpatient (REF) | payer MEDICARE, SELFPAY ==
[2024-11-26 06:36] LABS: MANUAL DIFF FLAG NO
[2024-11-26 07:20] LABS: Basophils Percent Auto 0.7 % (0-2); Eosinophils Absolute Auto 0.1 X10*3/uL (0.0-0.4); Eosinophils Percent Auto 0.8 % (0-4); Hematocrit 49.9 % (37.0-47.0); Imm Gran Abs Auto 0.02 X10*3/uL (0.00-0.03); Imm Gran Pct Auto 0.3 % (0.0-0.4); Lymphocytes Absolute Auto 1.6 X10*3/uL (1.2-4.9); Lymphocytes Percent Auto 27.1 % (20-40); Mean Corpuscular HGB Conc 34.1 g/dl (31.0-35.0); Mean Corpuscular Hemoglobin 31.5 pg (27.0-33.0); Mean Corpuscular Volume 92.4 fL (80.0-98.0); Mean Platelet Volume 9.4 fL (9.4-12.3); Monocytes Absolute Auto 0.4 X10*3/uL (0.1-1.2); Neutrophils Absolute Auto 3.9 x10*3/uL (2.0-8.3); Neutrophils Percent Auto 65.1 % (45-73); Platelet Count 216 X10*3/uL (160-400); Red Cell Distribution Width 12.4 % (11.0-16.0)
[2024-11-26 08:00] LABS: Alanine Aminotransferase 10 U/L (0-31); Albumin Level 4.1 g/dL (3.5-5.0); Alkaline Phosphatase 53 U/L (39-117); Anion Gap 11 (12-20); Aspartate Amino Transferase 23 U/L (5-31); Bilirubin Total 0.6 mg/dL (0.0-1.0); Blood Urea Nitrogen 15 mg/dL (9-16); Calcium 9.4 mg/dL (8.4-10.2); Carbon Dioxide 28 mmol/L (22-29); Chloride 109 mmol/L (96-108); Cholesterol 155 mg/dL (<200); Estimated Glomerular Filt Rate > 60; Glucose Fasting 105 mg/dL (60-99); HDL Cholesterol 45 mg/dL (>40); LDL Cholesterol Calculated 99 mg/dL (<100); Potassium 4.6 mmol/L (3.3-5.1); Sodium 143 mmol/L (135-145); Total Protein 7.1 g/dL (6.5-8.0); Triglycerides 55 mg/dL (<150)
== END 2024-11-26 06:06 | disposition home or self-care (01) ==
LOC: HO.LAB 06:05
PROVIDERS: PCP Internal Medicine; Visit Provider Internal Medicine
DX: E78.00 Pure hypercholesterolemia, unspecified (principal); D64.9 Anemia, unspecified
CPT/HCPCS: 36415; 80053; 80061; 85025

== ENCOUNTER 2024-12-07 08:54 | Outpatient (AMB) | payer MEDICARE, SELFPAY ==
[2024-12-07 09:05] VITALS: BP 112/68; PULSE 63; O2SAT 93; BMI 25.9
--- NOTE | 2024-12-07 09:05 | A.OFFPC_ITS ---
Vital Signs 12/07/24 09:05 Height 5 ft 2 in Weight 141 lb 6 oz BMI 25.9 BP 112/68 Blood Pressure Location Lt brachial Position Sitting Pulse 63 Pulse Source Pulse Oximeter Pulse Oximetry (%) 93 Oxygen Delivery Method Room Air Intake Visit Reasons: hemochromatosis carrier Plastic Surgery Specialist Required: No Accompanied by: Self / Same As Patient Allergies Sulfa (Sulfonamide Antibiotics) Allergy (Intermediate, Verified 12/07/24 09:12) RASH,HIVES,ITCHY Medication List - Last Reconciled 12/07/24 by Jorge L Schneider MD cyanocobalamin (vitamin B-12) 2,000 mcg PO DAILY multivitamin (Daily Multi-Vitamin tablet) 1 tab PO DAILY oxybutynin chloride ER 15 mg PO DAILY 90 days Tobacco use date assessed: 12/07/24 Fall risk assessment: No Falls in past year Last assessed Fall Risk: 12/07/24 Dental Screening Dental Screen Date: 12/07/24 Did you have a dental visit in the last 12 months?: Yes Did you have a dental problem in the last 6 months where you did not have access to dental care?: No Was dental information given to patient?: Patient has dentist HPI hemochromatosis carrier HPI Details Patient comes in today for her follow up visit States that she feels okay She denies any headaches or dizziness Denies any chest pains, no increased SOB No nausea/vomiting, no abdominal pain No change in bowel habits noted Needs her Oxybutynin ER Rx refilled She had her follow up labs done a couple of weeks ago - to discuss her results [facility] Medical History Overweight (BMI 25.0-29.9) Smoker Personal history of nicotine dependence Overactive bladder Allergic rhinitis Hemochromatosis carrier Impaired fasting glucose Dyslipidemia Pulmonary nodules COPD (chronic obstructive pulmonary disease) Nicotine dependence, cigarettes, uncomplicated Surgical History History of cataract surgery History of breast biopsy History of excision of lesion History of colonoscopy Family History Mother Hemochromatosis Breast cancer Maternal Aunt Ovarian cancer Maternal Aunt Breast cancer Father Medical history unknown Social History (Reviewed 12/07/24 @ 09:06 by ISAEL Judge Household Members: None Housing: House Alcohol intake: current Alcohol intake frequency: holidays/special occasions only Alcohol type: wine Patient Tobacco Use Status: Current everyday Tobacco user Tobacco use type: Cigarette Cigarette Packs Per Day: 1 Years Smoked: 60 e-Cigarette/Vaping Use: Never Used Second Hand Smoke Exposure: Yes service: No Current occupational status: retired Cognitive needs: No Hearing needs: No Vision needs: Yes Questionnaire PHQ-9 Over the last 2 weeks, how often have you been bothered by any of the following problems? 1. Little interest or pleasure in doing things: not at all 2. Feeling down, depressed, or hopeless: not at all 3. Trouble falling or staying asleep, or sleeping too much: not at all 4. Feeling tired or having little energy: not at all 5. Poor appetite or overeating: not at all 6. Feeling bad about yourself - or that you are a failure or have let yourself or your family down: not at all 7. Trouble concentrating on things, such as reading the newspaper or watching television: not at all 8. Moving or speaking so slowly that other people could have noticed. Or the opposite - being so fidgety or restless that you have been moving around a lot more than usual: not at all 9. Thoughts that you would be better off or of hurting yourself in some way: not at all Total score: 0 Depression Screening Interpretation: Negative Depression Screening Done: Yes 93626 - PHQ-9 Billing: Yes Source: Developed by Drs. Bruno Day, Roxie Fam, Palmer Edwards and colleagues, with an educational alina from [employer]. Thrive Questionnaire Date Thrive assessed: 12/07/24 I am a: Patient What is your living situation today?: I have a steady place to live Within the past 12 months, did the food you bought not last and you didn't have the money to get more?: Never true Within the past 12 months, did you worry whether your food would run out before you got money to buy more?: Never true Do you have trouble paying for medicines?: No Do you have trouble getting transportation to medical appointments?: No Do you have trouble paying your heating and electricity bill?: No Do you have trouble taking care of your child, family member or friend?: No Do you have trouble with day-to-day activities such as bathing, preparing meals, shopping, managing finances, etc.?: No Are you currently unemployed and looking for a job?: No Are you interested in more education?: No Please select the resources that you would like help with: None Currently or been in a relationship where the following occur: No concerns reported THRIVE Score: 0 AUDIT C Alcohol Use Questionnaire (AUDIT-C) 1. How often do you have a drink containing alcohol?: Never 2. How many drinks containing alcohol do you have on a typical day when you are drinking?: 1 or 2 3. How often do you have six or more drinks on one occasion?: Never Total Score: 0 Score Reviewed/Action Taken: Yes BETY-7 AMB Questionnaire BETY-7 Date BETY - 7 assessed: 12/07/24 Feeling nervous, anxious, or on edge: 0 = Not at all Not being able to stop or control worryin = Not at all Worrying too much about different things: 0 = Not at all Trouble relaxin = Not at all Being so restless that it is hard to sit still: 0 = Not at all Becoming easily annoyed or irritable: 0 = Not at all Feeling afraid as if something awful might happen: 0 = Not at all Total BETY-7 score (0-4 normal; 5-9 mild; 10-14 moderate; 15-21 severe): 0 Source: Developed by Drs. Bruno Day, Roxie Fam, Palmer Edwards and colleagues, with an educational alina from [employer]. Review of Systems Const Denies chills, Denies fatigue, Denies fever(s) and Denies headache(s) ENT Denies dysphagia, Denies dizziness, Denies otalgia, Denies headache(s), Denies neck pain, Denies odynophagia and Denies sore throat Card Denies chest pain, Denies palpitations and Denies dyspnea Resp Denies chest congestion, Denies cough, Denies dyspnea and Denies wheezing GI Denies abdominal pain, Denies constipation, Denies dysphagia, Denies heartburn, Denies diarrhea, Denies nausea, Denies odynophagia and Denies vomiting Denies difficulty voiding, Reports nocturia (symptoms have improved a lot with Rx), Denies dysuria and Reports urinary incontinence (at times - improved with Rx) Musc Denies neck pain Skin/Breast Denies rash Neuro Denies dizziness and Denies headache(s) Endo Denies fatigue and Denies palpitations Aller/Immun Denies wheezing Physical exam (Primary Care) Vital Signs: Last Vital Signs Pulse 63 12/07/24 09:05 BP 112/68 12/07/24 09:05 Pulse Ox 93 12/07/24 09:05 Oxygen Delivery Method Room Air 12/07/24 09:05 BMI result Body Mass Index 25.9 Tobacco/Smoking Status: Tobacco use Status Tobacco use date assessed 12/07/24 12/07/24 09:10 Patient Tobacco Use Status Current everyday Tobacco 12/07/24 09:10 Tobacco use type Cigarette 12/07/24 09:10 e-Cigarette/Vaping Use Never Used 12/07/24 09:10 PHQ-9: PHQ-9 Score PHQ-9: Total score 0 12/07/24 09:10 Depression Screening Interpretation: Negative Thrive Assessment: Date of Thrive Assessment Date Thrive assessed 12/07/24 12/07/24 09:10 Currently or been in a relationship where the following occur: No concerns reported Const General: no acute distress and alert HENMT Ears: TM's normal bilaterally and EAC's normal Throat: Yes posterior oropharynx normal and Yes tonsils normal (no TP congestion noted) Neck Neck: Yes supple and No lymphadenopathy Thyroid: Thyroid normal Resp Auscultation: clear to auscultation bilaterally, no rales and no wheezes Cardio Rate: regular rate Rhythm: regular rhythm Heart sounds: no murmurs GI Palpation (GI): Soft to palpation and nontender Auscultation: normal bowel sounds General: Yes no CVA tenderness Back/Spine/Pelvis Back: no CVA tenderness Thoracic/Lumbar Spine: No lumbar spinal tenderness Skin Rashes: no rashes Extrem General: Yes no clubbing, cyanosis or edema Results Reviewed Results Reviewed: Laboratory Tests 11/26/24 06:35 WBC 6.0 Hgb 17.0 H Hct 49.9 H Plt Count 216 Sodium 143 Potassium 4.6 Creatinine 0.74 Estimated GFR > 60 Fasting Glucose 105 H Calcium 9.4 AST 23 ALT 10 Triglycerides 55 Cholesterol 155 LDL Cholesterol, Calc 99 HDL Cholesterol 45 Coding Level of Care Code Est Pt Level 4 (66656) Diagnoses Chronic obstructive pulmonary disease, unspecified COPD type J44.9 COPD type: unspecified COPD Dyslipidemia E78.5 Hemochromatosis carrier Z14.8 Impaired fasting glucose R73.01 Overactive bladder N32.81 Smoker F17.200 Overweight (BMI 25.0-29.9) E66.3 Additional Codes PHQ-9 - 64593 - PHQ-9 Billing: Yes ([id number]) Assessment & Plan Assessment & Plan (1) COPD (chronic obstructive pulmonary disease): Comment: Last PFT on 08/29/2020 PFT: FEV1 85%, FVC 82%, FEV1/FVC 0.76, DLCO 49%, mod dec).. COPD is mild, she is essentially asymptomatic at this time Code(s): J44.9 - Chronic obstructive pulmonary disease, unspecified Category: Medical Qualifiers: COPD type: unspecified COPD Qualified Code(s): J44.9 - Chronic obstructive pulmonary disease, unspecified Plan: Chest CT done in 2019 showed findings of pulmonary emphysema Patient states that she feels well and reports no symptoms of SOB or [place] at any time and has not needed to use any rescue inhalers at all Per pulmonary, patient's COPD is mild and she does NOT require any Rx at present Follow up with pulmonary (Dr. Amador) as scheduled (2) Dyslipidemia: Code(s): E78.5 - Hyperlipidemia, unspecified Category: Medical Plan: Results of her labs done a couple of weeks ago reviewed and discussed with patient Reinforced low cholesterol diet Will recheck her labs and fasting lipids in 6 months for follow up (3) Hemochromatosis carrier: Comment: She is a carrier, last hemoglobin 16.6, Being followed by Hematology Code(s): Z14.8 - Genetic carrier of other disease Category: Medical Plan: Follow up with hematology/oncology (Dr. Smith/Andriy) as scheduled - she now sees them just once a year Continue Phlebotomy every 2 to 3 months / as needed - patient states that she has not needed to go for phlebotomy in the past couple of years Her most recent H/H from a couple of weeks ago was elevated at 17.0/49.9 Will have her recheck her CBC in a couple of months for follow up and if her H/H remains elevated on her repeat labs, then she will likely have to go for phlebotomy again Will continue to monitor her CBC regularly every 6 months (4) Impaired fasting glucose: Code(s): R73.01 - Impaired fasting glucose Category: Medical Plan: Her FBS was at 105 mg/dl on her labs done a couple of weeks ago HgbA1c has been normal at 5.3% when previously checked Reinforced low calorie/low carb diet; exercise as tolerated (5) Overactive bladder: Code(s): N32.81 - Overactive bladder Category: Medical Plan: Patient states that her urinary symptoms have improved significantly with her Rx Continue Oxybutynin ER 10 mg QD - Rx refilled (6) Smoker: Comment: Patient continues to smoke , but has cut it weight down. Only smoking 1 or 2 cigarettes a day. Code(s): F17.200 - Nicotine dependence, unspecified, uncomplicated Category: Social Hx Plan: She is counseled again on complete smoking cessation (7) Overweight (BMI 25.0-29.9): Code(s): E66.3 - Overweight Category: Medical Plan: Reinforced diet/exercise as tolerated/lose weight Plan Follow up in 6 months Orders: Orders Complete Blood Count Auto Diff 2 Months D64.9 - Anemia, unspecified Comprehensive [place]. Panel Fast 6 Months E78.00 - Pure hypercholesterolemia, unspecified Lipid Panel 6 Months E78.00 - Pure hypercholesterolemia, unspecified Vitamin D 25-OH Total 6 Months E55.9 - Vitamin D deficiency, unspecified Complete Blood Count Auto Diff 6 Months D64.9 - Anemia, unspecified Hemoglobin A1c 6 Months E11.9 - Type 2 diabetes mellitus without complications TSH reflex Free T4 6 Months E78.00 - Pure hypercholesterolemia, unspecified UA CC w/rflx Micro + Cult 6 Months R30.0 - Dysuria Vitamin B12 and Folate 6 Months E53.8 - Deficiency of other specified B group vitamins Medications: Refilled oxybutynin chloride ER 15 mg PO DAILY 90 days 90 tabs 1RF
== END 2024-12-07 09:34 | disposition home or self-care (01) ==
LOC: HO.HMCH 08:55
PROVIDERS: PCP Internal Medicine; Visit Provider Internal Medicine
DX: J44.9 Chronic obstructive pulmonary disease, unspecified (principal); E78.5 Hyperlipidemia, unspecified; Z14.8 Genetic carrier of other disease; R73.01 Impaired fasting glucose; N32.81 Overactive bladder; F17.200 Nicotine dependence, unspecified, uncomplicated; E66.3 Overweight

== ENCOUNTER → 2024-12-07 08:54 | Outpatient (BNVA) | payer MEDICARE, SELFPAY | PROVIDERS: PCP Internal Medicine; Visit Provider Internal Medicine | DX: J44.9 Chronic obstructive pulmonary disease, unspecified (principal); E78.5 Hyperlipidemia, unspecified; F17.210 Nicotine dependence, cigarettes, uncomplicated; N32.81 Overactive bladder; E66.3 Overweight; D64.9 Anemia, unspecified; E78.00 Pure hypercholesterolemia, unspecified; E55.9 Vitamin D deficiency, unspecified; E11.9 Type 2 diabetes mellitus without complications; Z68.25 Body mass index [BMI] 25.0-25.9, adult; Z79.899 Other long term (current) drug therapy | CPT/HCPCS: 96127; 99212 ==

== ENCOUNTER 2025-02-06 07:27 | Outpatient (REF) | payer MEDICARE, SELFPAY ==
[2025-02-06 07:47] LABS: MANUAL DIFF FLAG NO
[2025-02-06 08:14] LABS: Basophils Percent Auto 0.7 % (0-2); Eosinophils Absolute Auto 0.1 X10*3/uL (0.0-0.4); Eosinophils Percent Auto 1.5 % (0-4); Hematocrit 47.2 % (37.0-47.0); Hemoglobin 16.1 g/dl (12.0-16.0); Imm Gran Abs Auto 0.01 X10*3/uL (0.00-0.03); Imm Gran Pct Auto 0.2 % (0.0-0.4); Lymphocytes Absolute Auto 1.7 X10*3/uL (1.2-4.9); Lymphocytes Percent Auto 32.4 % (20-40); Mean Corpuscular HGB Conc 34.1 g/dl (31.0-35.0); Mean Corpuscular Hemoglobin 31.2 pg (27.0-33.0); Mean Corpuscular Volume 91.5 fL (80.0-98.0); Mean Platelet Volume 9.6 fL (9.4-12.3); Monocytes Absolute Auto 0.4 X10*3/uL (0.1-1.2); Monocytes Percent Auto 8.1 % (2-11); Neutrophils Absolute Auto 3.1 x10*3/uL (2.0-8.3); Neutrophils Percent Auto 57.1 % (45-73); Platelet Count 213 X10*3/uL (160-400); Red Blood Count 5.16 X10*6/uL (4.20-5.50); Red Cell Distribution Width 12.6 % (11.0-16.0); White Blood Count 5.3 X10*3/uL (4.8-10.8)
== END 2025-02-06 07:28 | disposition home or self-care (01) ==
LOC: HO.LAB 07:27
PROVIDERS: PCP Internal Medicine; Visit Provider Internal Medicine
DX: D64.9 Anemia, unspecified (principal)
CPT/HCPCS: 36415; 85025

== ENCOUNTER 2025-05-04 09:24 | Outpatient (AMB) | payer MEDICARE, SELFPAY ==
[2025-05-04 09:29] VITALS: BP 111/62; PULSE 86; O2SAT 94; BMI 25.2
--- NOTE | 2025-05-04 09:29 | A.OFFVIS_ITS ---
Vital Signs 05/04/25 09:29 Height 5 ft 2 in Weight 138 lb BMI 25.2 BP 111/62 Blood Pressure Location Lt brachial Position Sitting Pulse 86 Pulse Source Pulse Oximeter Pulse Oximetry (%) 94 Oxygen Delivery Method Room Air Intake Visit Reasons: COPD Intake Note: Patient is here for a follow up on COPD, patient c/o [place]. Allergies Sulfa (Sulfonamide Antibiotics) Allergy (Intermediate, Verified 05/04/25 09:42) RASH,HIVES,ITCHY Medication List - Last Reconciled 05/04/25 by Brenda Amador MD cyanocobalamin (vitamin B-12) 2,000 mcg PO DAILY multivitamin (Daily Multi-Vitamin tablet) 1 tab PO DAILY oxybutynin chloride ER 15 mg PO DAILY 90 days Do you need a note to return to daycare/school/sports/work: No HPI HPI COPD: Details: JANEE , 80 YEARS OLD FEMALE IS HERE FOR FOLLOW-UP FOR HER PULMONARY EMPHYSEMA, SHOWN ON THE IMAGING. SHE IS NOT ON ANY PULMONARY MEDS AND HAS NOT NEEDED TO USE RESCUE INHALER. HER MAIN ISSUE IS THAT WHEN SHE STARTS DOING SOME PHYSICAL WORK IN THE 1ST FEW MINUTES SHE FEELS SHORT OF BREATH, BUT AFTER TAKING A LITTLE BREAK THEN SHE CAN DO HER USUAL DAY-TO-DAY ACTIVITIES WITHOUT ANY DYSPNEA. HAS VERY LITTLE COUGH OR WHEEZING. FOR HER AGE, 80 SHE IS VERY ACTIVE AND MOWS THE LAWN WELL SHOVELS THE SNOW HERSELF. * continues to smoke close to 1 pack of cigarettes a day, says I find it difficult to quit [facility] Medical History Overweight (BMI 25.0-29.9) Smoker Personal history of nicotine dependence Overactive bladder Allergic rhinitis Hemochromatosis carrier Impaired fasting glucose Dyslipidemia Pulmonary nodules COPD (chronic obstructive pulmonary disease) Nicotine dependence, cigarettes, uncomplicated Surgical History History of cataract surgery History of breast biopsy History of excision of lesion History of colonoscopy Family History Mother Hemochromatosis Breast cancer Maternal Aunt Ovarian cancer Maternal Aunt Breast cancer Father Medical history unknown Social History Household Members: None Housing: House Alcohol intake: current Alcohol intake frequency: holidays/special occasions only Alcohol type: wine Patient Tobacco Use Status: Current everyday Tobacco user Tobacco use type: Cigarette Cigarette Packs Per Day: 1 Years Smoked: 60 e-Cigarette/Vaping Use: Never Used Second Hand Smoke Exposure: Yes service: No Current occupational status: retired Cognitive needs: No Hearing needs: No Vision needs: Yes Review of Systems Const All systems reviewed & are unremarkable except as noted in HPI and below Eyes Reports other (HAS MACULAR DEGENERATION, GETTING INJECTION ONCE A MONTH.) ENT Details: Reports no additional complaints Card Denies chest pain, Denies irregular heart rhythm and Denies leg edema Resp Reports as per HPI GI Reports no additional complaints Reports urinary incontinence (CONTROLLED WITH OXYBUTYNIN CHLORIDE) Musc Reports no additional complaints Skin/Breast Reports system reviewed and no additional complaints, except as documented Neuro Reports no additional complaints Psych Reports no additional complaints Endo Reports no additional complaints Physical Exam Vital Signs: Last Vital Signs Pulse 86 05/04/25 09:29 BP 111/62 05/04/25 09:29 Pulse Ox 94 05/04/25 09:29 Oxygen Delivery Method Room Air 05/04/25 09:29 BMI result Body Mass Index 25.2 Const General: healthy appearing, comfortable, no acute distress, alert and awake Orientation/consciousness: patient oriented x3 HEENT Head: Yes normal to inspection General nose exam: No nasal polyps present and No nasal discharge present Face and sinus: Yes sinuses nontender Mouth: oropharynx normal Throat: Yes posterior oropharynx normal Eyes General: appearance normal, both eyes and all related structures Neck Neck: Yes normal visual inspection, Yes no lymphadenopathy, Yes trachea midline and Yes no JVD Thyroid: Thyroid normal Chest Chest palpation & inspection: normal inspection of the chest, normal palpation of entire chest wall and no tenderness Resp Effort & Inspection: normal respiratory effort Auscultation: clear to auscultation bilaterally Percussion: percussion normal Cardio Palpation: normal PMI Rate: regular rate Rhythm: regular rhythm Heart sounds: no gallops and no murmurs GI Palpation (GI): Soft to palpation, nontender, No hepatosplenomegaly present and no masses Auscultation: normal bowel sounds Back/Spine/Pelvis Thoracic/Lumbar Spine: thoracic and lumbar spine normal to inspection Skin General skin exam: no rashes or lesions noted Neuro General: patient oriented x3 and no focal motor deficits Cranial nerves: Yes CN's II-XII intact bilaterally Extrem General: Yes normal to inspection, Yes no clubbing, cyanosis or edema and Yes no calf tenderness Psych Appearance: grossly normal and well kempt Speech and movement: Normal speech and movement present Office Procedures Spirometry Testing Spirometry Comments: Spirometry done in the office, Dr. Amador has the results results scanned to her chart. 84135- Spirometry Results Reviewed Results Reviewed: SPIROMETRY: FVC=72 % FEV1= 64 % FEF 25-75 = 43 % Compared to results of 2020 there is significant decline in the flow volumes numbers. Now she has moderately severe obstructive airway disorder. CT SCAN OF CHEST 09/07/2024 IMPRESSION: Marked emphysema with multiple pulmonary nodules some of which are new and some of which have resolved. The largest nodule now measures 6.7 mm in the right lung, increased in size from 5 mm. According to the UPDATED 2017 Fleischner Society recommendations, the advised follow-up imaging for a single 6-8 mm solid nodule is follow-up CT at 6 to 12 months. In high-risk patients, subsequent CT follow-up at 18 to 24 months is recommended. In low-risk patients, subsequent CT follow-up at 18 to 24 months is optional. Electronically signed by: Xander Tracy MD 09/07/2024 09:15 AM EST Assessment & Plan Assessment & Plan (1) COPD (chronic obstructive pulmonary disease): Comment: Last PFT on 08/29/2020 PFT: FEV1 85%, FVC 82%, FEV1/FVC 0.76, DLCO 49%, mod dec).. As per spirometry today she has moderately severe obstructive airway disorder. The flow volume numbers have declined. This is due to continued smoking COPD is moderately severe but she is relatively asymptomatic at this time Code(s): J44.9 - Chronic obstructive pulmonary disease, unspecified Category: Medical Qualifiers: COPD type: unspecified COPD Qualified Code(s): J44.9 - Chronic obstructive pulmonary disease, unspecified Plan: Discussed the findings of spirometry with her. Effort use bronchodilator inhalers as needed but she does not want to. Instructed to avoid catching any respiratory infection. Her vaccines are up to date I advised her that we should see her at least every 6 months for follow-up. (2) Personal history of nicotine dependence: Comment: (current smoker, 1ppd, 50+PYH - in LDCT screening program, 12/2020 LDCT = LungRADS 2) She is still smoking about 1 pack a day . Lost regular CT scan in August 2024 Code(s): Z87.891 - Personal history of nicotine dependence Category: Medical Plan: Discussed about the results of spirometry and I stressed that she should quit smoking or at least cut down into half pack a day , then cut down further as she can. (3) Pulmonary nodules: Comment: (waxing/waning - in LDCT screening program) last CT scan in December 2021. We have talked to her about having a regular CT scan of the chest, as she does not qualify for the LDCT program. She did have regular CT scan in August 2024. She has multiple small, pulmonary nodules , 1 nodule of concern is 6.5 mm in the right mid lung. Code(s): R91.8 - Other nonspecific abnormal finding of lung field Category: Medical Plan: Explained to her about these findings. She is still. A high-risk because of continued smoking I advised her that she should get CT scan on yearly basis. Will further discuss about this on her next visit in October 2025. Orders: Orders AMB Spirometry Testing Today J44.9 - Chronic obstructive pulmonary disease, unspecified Coding Level of Care Code Est Pt Level 3 (19479) Diagnoses Chronic obstructive pulmonary disease, unspecified COPD type J44.9 COPD type: unspecified COPD Personal history of nicotine dependence Z87.891 Pulmonary nodules R91.8 CPT Codes Spirometry - CPT: 13991- Spirometry ([id number])
--- OUTSIDE RECORDS SUMMARY | 2025-05-04 10:51 | XMS_ITS | Patient Health Record ---
Author Organization [facility] Address [address] [place] [address] Care Team Providers Care Global Director Air And Climate Change Name Role Phone Bruno Santana Unavailable [phone] Reason For Referral No Information Medications Medication SIG (Take, Route, Fr equency, Duration) Notes Start Date End Date Status MoviPrep 100 GM as directed Orally 07/25/20110 08/2024 Active Problems Problem Type SNOMED Code ICD Code Onset Dates Problem Status W/U Status Risk Notes Problem History of polyp of colon (situation) (674303099) Personal history of colonic polyps (V12.72) Active confirmed Problem Screening for malignant neoplasm of colon ([id number]) Special screening for malignant neoplasms, colon (V76.51) Active confirmed Plan Of Treatment Future Test Test Name Order Date COLONOSCOPY 07/25/2011 Insurance Providers Payer Name Payer Address Payer Phone Subscriber Number Group Number Insured Name Patient Relationship to Insured Coverage Start Date Coverage End Date [facility] [address] [place], [place] [id number] [phone] [id number] JANEE CARRENO Self - patient is the insured Medical (General) History Medical History History ICD Code Denies DE,DM,CVA,Lung disease,renal dise ase Surgical History Surgery Date(Month/Year) eyelid lift surgery
== END 2025-05-04 10:08 | disposition home or self-care (01) ==
LOC: HO.HPS 09:25
PROVIDERS: PCP Internal Medicine; Visit Provider Internal Medicine
DX: J44.9 Chronic obstructive pulmonary disease, unspecified (principal); Z87.891 Personal history of nicotine dependence; R91.8 Other nonspecific abnormal finding of lung field
CPT/HCPCS: 94010; 99213

== ENCOUNTER → 2025-05-04 09:24 | Outpatient (BNVA) | payer MEDICARE, SELFPAY | PROVIDERS: PCP Internal Medicine; Visit Provider Internal Medicine | DX: J44.9 Chronic obstructive pulmonary disease, unspecified (principal); Z87.891 Personal history of nicotine dependence; R91.8 Other nonspecific abnormal finding of lung field; Z68.25 Body mass index [BMI] 25.0-25.9, adult | CPT/HCPCS: 94010; 99212 ==

== ENCOUNTER 2025-06-08 09:50 | Outpatient (AMB) | payer MEDICARE, SELFPAY ==
--- NOTE | 2025-06-08 09:54 | A.OFFPC_ITS ---
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 Required: No Accompanied by: Self / Same As Patient Allergies Sulfa (Sulfonamide Antibiotics) Allergy (Intermediate, Verified 06/08/25 10:07) RASH,HIVES,ITCHY Medication List - Last Reconciled 06/08/25 by Jorge L Schneider MD cyanocobalamin (vitamin B-12) 2,000 mcg PO DAILY multivitamin (Daily Multi-Vitamin tablet) 1 tab PO DAILY oxybutynin chloride ER 15 mg PO DAILY 90 days Tobacco use date assessed: 06/08/25 Fall risk assessment: No Falls in past year Last assessed Fall Risk: 06/08/25 Dental Screening Dental Screen Date: 06/08/25 Did you have a dental visit in the last 12 months?: Yes Did you have a dental problem in the last 6 months where you did not have access to dental care?: No Was dental information given to patient?: Patient has dentist HPI hemochromatosis carrier, OAB HPI Details Patient comes in today for her follow up visit States that she feels okay She denies any headaches or dizziness Denies any chest pains, no increased SOB but she continues to complain of some WELL[place] - she sees Dr. Amador regularly for pulmonary follow up No nausea/vomiting, no abdominal pain No change in bowel habits noted She was not able to get her follow up labs done yet - states that she will try to go and get these done [facility] Medical History Overweight (BMI 25.0-29.9) Smoker Personal history of nicotine dependence Overactive bladder Allergic rhinitis Hemochromatosis carrier Impaired fasting glucose Dyslipidemia Pulmonary nodules COPD (chronic obstructive pulmonary disease) Nicotine dependence, cigarettes, uncomplicated Surgical History History of cataract surgery History of breast biopsy History of excision of lesion History of colonoscopy Family History Mother Hemochromatosis Breast cancer Maternal Aunt Ovarian cancer Maternal Aunt Breast cancer Father Medical history unknown Social History Household Members: None Housing: House Alcohol intake: current Alcohol intake frequency: holidays/special occasions only Alcohol type: wine Patient Tobacco Use Status: Current everyday Tobacco user Tobacco use type: Cigarette Cigarette Packs Per Day: 1 Years Smoked: 60 e-Cigarette/Vaping Use: Never Used Second Hand Smoke Exposure: Yes service: No Current occupational status: retired Cognitive needs: No Hearing needs: No Vision needs: Yes Questionnaire PHQ-9 Over the last 2 weeks, how often have you been bothered by any of the following problems? 1. Little interest or pleasure in doing things: nearly every day 2. Feeling down, depressed, or hopeless: not at all 3. Trouble falling or staying asleep, or sleeping too much: several days 4. Feeling tired or having little energy: nearly every day 5. Poor appetite or overeating: nearly every day 6. Feeling bad about yourself - or that you are a failure or have let yourself or your family down: not at all 7. Trouble concentrating on things, such as reading the newspaper or watching television: not at all 8. Moving or speaking so slowly that other people could have noticed. Or the opposite - being so fidgety or restless that you have been moving around a lot more than usual: not at all 9. Thoughts that you would be better off or of hurting yourself in some way: not at all Total score: 10 Depression Screening Interpretation: Positive Depression Screening Follow-up: Follow-up Visit Requested Depression Screening Done: Yes [id number] - PHQ-9 Billing: Yes Source: Developed by Drs. Bruno Day, Roxie Fam, Palmer Edwards and colleagues, with an educational alina from [employer]. Thrive Questionnaire Date Thrive assessed: 06/08/25 I am a: Patient What is your living situation today?: I have a steady place to live Within the past 12 months, did the food you bought not last and you didn't have the money to get more?: Never true Within the past 12 months, did you worry whether your food would run out before you got money to buy more?: Never true Do you have trouble paying for medicines?: No Do you have trouble getting transportation to medical appointments?: No Do you have trouble paying your heating and electricity bill?: No Do you have trouble taking care of your child, family member or friend?: No Do you have trouble with day-to-day activities such as bathing, preparing meals, shopping, managing finances, etc.?: Yes Are you currently unemployed and looking for a job?: No Are you interested in more education?: No Please select the resources that you would like help with: Daily support Currently or been in a relationship where the following occur: No concerns reported THRIVE Score: 0 AUDIT C Alcohol Use Questionnaire (AUDIT-C) 1. How often do you have a drink containing alcohol?: Never 3. How often do you have six or more drinks on one occasion?: Never Total Score: 0 Score Reviewed/Action Taken: Yes BETY-7 AMB Questionnaire BETY-7 Date BETY - 7 assessed: 12/07/24 Feeling nervous, anxious, or on edge: 1 = Several days Not being able to stop or control worryin = Several days Worrying too much about different things: 1 = Several days Trouble relaxin = Not at all Being so restless that it is hard to sit still: 0 = Not at all Becoming easily annoyed or irritable: 0 = Not at all Feeling afraid as if something awful might happen: 0 = Not at all Total BETY-7 score (0-4 normal; 5-9 mild; 10-14 moderate; 15-21 severe): 3 Source: Developed by Drs. Bruno Day, Roxie Fam, Palmer Edwards and colleagues, with an educational alina from [employer]. Review of Systems Const Denies chills, Denies fatigue, Denies fever(s) and Denies headache(s) ENT Denies dysphagia, Denies dizziness, Denies otalgia, Denies headache(s), Denies neck pain, Denies odynophagia and Denies sore throat Card Denies chest pain, Denies palpitations and Reports dyspnea on exertion Resp Denies chest congestion, Denies cough, Reports dyspnea on exertion and Denies wheezing GI Denies abdominal pain, Denies constipation, Denies dysphagia, Denies heartburn, Denies diarrhea, Denies nausea, Denies odynophagia and Denies vomiting Denies difficulty voiding, Reports nocturia (symptoms have improved a lot with Rx), Denies dysuria and Reports urinary incontinence (at times - improved with Rx) Musc Denies back pain and Denies neck pain Skin/Breast Denies rash Neuro Denies dizziness, Denies headache(s) and Reports memory loss (at times, per patient - feels she is getting forgetful slowly) Psych Reports memory loss (at times, per patient - feels she is getting forgetful slowly) Endo Denies fatigue and Denies palpitations Aller/Immun Denies wheezing Physical exam (Primary Care) Vital Signs: Last Vital Signs Pulse 71 06/08/25 09:55 BP 118/80 06/08/25 09:55 Pulse Ox 93 06/08/25 09:55 Oxygen Delivery Method Room Air 06/08/25 09:55 BMI result Body Mass Index 25.5 Tobacco/Smoking Status: Tobacco use Status Tobacco use date assessed 06/08/25 06/08/25 10:00 Patient Tobacco Use Status Current everyday Tobacco 06/08/25 10:00 Tobacco use type Cigarette 06/08/25 10:00 e-Cigarette/Vaping Use Never Used 06/08/25 10:00 PHQ-9: PHQ-9 Score PHQ-9: Total score 10 06/08/25 10:00 Depression Screening Interpretation: Positive Depression Screening Follow-up: Follow-up Visit Requested Thrive Assessment: Date of Thrive Assessment Date Thrive assessed 06/08/25 06/08/25 10:00 Currently or been in a relationship where the following occur: No concerns reported Const General: no acute distress and alert HENMT Ears: TM's normal bilaterally and EAC's normal Throat: Yes posterior oropharynx normal and Yes tonsils normal (no TP congestion noted) Neck Neck: Yes supple and No lymphadenopathy Thyroid: Thyroid normal Resp Auscultation: clear to auscultation bilaterally, no rales and no wheezes Cardio Rate: regular rate Rhythm: regular rhythm Heart sounds: no murmurs GI Palpation (GI): Soft to palpation and nontender Auscultation: normal bowel sounds General: Yes no CVA tenderness Back/Spine/Pelvis Back: no CVA tenderness Thoracic/Lumbar Spine: No lumbar spinal tenderness Skin Rashes: no rashes Extrem General: Yes no clubbing, cyanosis or edema Coding Level of Care Code Est Pt Level 4 (23678) Diagnoses Chronic obstructive pulmonary disease, unspecified COPD type J44.9 COPD type: unspecified COPD Dyslipidemia E78.5 Hemochromatosis carrier Z14.8 Impaired fasting glucose R73.01 Overactive bladder N32.81 Smoker F17.200 Overweight (BMI 25.0-29.9) E66.3 Additional Codes PHQ-9 - 16009 - PHQ-9 Billing: Yes ([id number]) Assessment & Plan Assessment & Plan (1) COPD (chronic obstructive pulmonary disease): Comment: Last PFT on 08/29/2020 PFT: FEV1 85%, FVC 82%, FEV1/FVC 0.76, DLCO 49%, mod dec).. As per spirometry today she has moderately severe obstructive airway disorder. The flow volume numbers have declined. This is due to continued smoking COPD is moderately severe but she is relatively asymptomatic at this time Code(s): J44.9 - Chronic obstructive pulmonary disease, unspecified Category: Medical Qualifiers: COPD type: unspecified COPD Qualified Code(s): J44.9 - Chronic obstructive pulmonary disease, unspecified Plan: Chest CT done in 2019 showed findings of pulmonary emphysema Patient states that she feels well and has not needed to use any rescue inhalers although she does report (+) [place] that is usually promptly relieved she stops and rests for a few minutes Dr. Amador has offered to prescribe her a rescue inhaler to use but patient declined and does not feel that she needs them at this time Follow up with pulmonary (Dr. Amador) as scheduled (2) Dyslipidemia: Code(s): E78.5 - Hyperlipidemia, unspecified Category: Medical Plan: Patient was not able to get her labs done prior to her appointment today - states that she will try to go and get these done DELMI Reinforced low cholesterol diet Will recheck her labs and fasting lipids again in 6 months for follow up (3) Hemochromatosis carrier: Comment: She is a carrier, last hemoglobin 16.6, Being followed by Hematology Code(s): Z14.8 - Genetic carrier of other disease Category: Medical Plan: Follow up with hematology/oncology (Dr. Smith/Andriy) as scheduled - she now sees them just once a year Continue Phlebotomy every 2 to 3 months as needed - patient states that she has not needed to go for phlebotomy in the past couple of years Her most recent H/H from January 2025 was at 16.1/47.2 Will continue to monitor her CBC regularly every 6 months (4) Impaired fasting glucose: Code(s): R73.01 - Impaired fasting glucose Category: Medical Plan: Her FBS was at 105 mg/dl on her labs done previously HgbA1c has been normal at 5.3% when checked in the past Reinforced low calorie/low carb diet; exercise as tolerated (5) Overactive bladder: Code(s): N32.81 - Overactive bladder Category: Medical Plan: Patient states that her urinary symptoms have improved significantly with her Rx Continue Oxybutynin ER 10 mg QD (6) Smoker: Comment: Patient continues to smoke Code(s): F17.200 - Nicotine dependence, unspecified, uncomplicated Category: Social Hx Plan: She is counseled again on complete smoking cessation - states that she has tried to quit unsuccessfully multiple times in the past Continue routine CT lung screening and follow up with pulmonary as scheduled (7) Overweight (BMI 25.0-29.9): Code(s): E66.3 - Overweight Category: Medical Plan: Reinforced diet/exercise as tolerated/lose weight Plan Follow up in 6 months Orders: Orders Comprehensive Blanchard. Panel Fast 6 Months E78.00 - Pure hypercholesterolemia, unspecified Hemoglobin A1c 6 Months R73.01 - Impaired fasting glucose UA CC w/rflx Micro + Cult 6 Months R30.0 - Dysuria Vitamin B12 and Folate 6 Months E53.8 - Deficiency of other specified B group vitamins Vitamin D 25-OH Total 6 Months E55.9 - Vitamin D deficiency, unspecified Complete Blood Count Auto Diff 6 Months D64.9 - Anemia, unspecified Lipid Panel 6 Months E78.00 - Pure hypercholesterolemia, unspecified TSH reflex Free T4 6 Months E78.00 - Pure hypercholesterolemia, unspecified Ferritin 6 Months Z14.8 - Genetic carrier of other disease
[2025-06-08 09:55] VITALS: BP 118/80; PULSE 71; O2SAT 93; BMI 25.5
--- OUTSIDE RECORDS SUMMARY | 2025-06-08 11:08 | XMS_ITS | Patient Health Record ---
Author Organization [facility] Address [address] [place] [address] Care Team Providers Care Field Artillery Crewmember Name Role Phone Bruno Santana Unavailable [phone] Reason For Referral No Information Medications Medication SIG (Take, Route, Fr equency, Duration) Notes Start Date End Date Status MoviPrep 100 GM as directed Orally 07/25/20110 08/2024 Active Problems Problem Type SNOMED Code ICD Code Onset Dates Problem Status W/U Status Risk Notes Problem History of polyp of colon (situation) (418489013) Personal history of colonic polyps (V12.72) Active confirmed Problem Screening for malignant neoplasm of colon (293084407) Special screening for malignant neoplasms, colon (V76.51) Active confirmed Plan Of Treatment Future Test Test Name Order Date COLONOSCOPY 07/25/2011 Insurance Providers Payer Name Payer Address Payer Phone Subscriber Number Group Number Insured Name Patient Relationship to Insured Coverage Start Date Coverage End Date [facility] [address] [place], [place] [id number] JANEE CARRENO Self - patient is the insured Medical (General) History Medical History History ICD Code Denies [place],DM,CVA,Lung disease,renal dise ase Surgical History Surgery Date(Month/Year) eyelid lift surgery
== END 2025-06-08 10:23 | disposition home or self-care (01) ==
LOC: HO.HMCH 09:51
PROVIDERS: PCP Internal Medicine; Visit Provider Internal Medicine
DX: J44.9 Chronic obstructive pulmonary disease, unspecified (principal); E78.5 Hyperlipidemia, unspecified; Z14.8 Genetic carrier of other disease; R73.01 Impaired fasting glucose; N32.81 Overactive bladder; F17.200 Nicotine dependence, unspecified, uncomplicated; E66.3 Overweight

== ENCOUNTER → 2025-06-08 09:50 | Outpatient (BNVA) | payer MEDICARE, SELFPAY | PROVIDERS: PCP Internal Medicine; Visit Provider Internal Medicine | DX: R73.01 Impaired fasting glucose (principal); J44.9 Chronic obstructive pulmonary disease, unspecified; E78.5 Hyperlipidemia, unspecified; N32.81 Overactive bladder; E66.3 Overweight; F17.210 Nicotine dependence, cigarettes, uncomplicated; Z68.25 Body mass index [BMI] 25.0-25.9, adult | CPT/HCPCS: 96127; 99212 ==

== ENCOUNTER 2025-06-10 06:01 | Outpatient (REF) | payer MEDICARE, SELFPAY ==
--- OUTSIDE RECORDS SUMMARY | 2025-06-10 06:04 | XMS_ITS | Patient Health Record ---
Author Organization [facility] Address [address] [place] [address] Care Team Providers Care Hide Handler Name Role Phone Bruno Santana Unavailable [phone] Reason For Referral No Information Medications Medication SIG (Take, Route, Fr equency, Duration) Notes Start Date End Date Status MoviPrep 100 GM as directed Orally 07/25/20110 08/2024 Active Problems Problem Type SNOMED Code ICD Code Onset Dates Problem Status W/U Status Risk Notes Problem History of polyp of colon (situation) (460880325) Personal history of colonic polyps (V12.72) Active confirmed Problem Screening for malignant neoplasm of colon (463282906) Special screening for malignant neoplasms, colon (V76.51) Active confirmed Plan Of Treatment Future Test Test Name Order Date COLONOSCOPY 07/25/2011 Insurance Providers Payer Name Payer Address Payer Phone Subscriber Number Group Number Insured Name Patient Relationship to Insured Coverage Start Date Coverage End Date [facility] [address] [place], [place] [id number] JANEE CARRENO Self - patient is the insured Medical (General) History Medical History History ICD Code Denies [place],DM,CVA,Lung disease,renal dise ase Surgical History Surgery Date(Month/Year) eyelid lift surgery
[2025-06-10 06:23] LABS: MANUAL DIFF FLAG NO
[2025-06-10 07:40] LABS: Hematocrit 49.1 % (37.0-47.0); Hemoglobin 16.3 g/dl (12.0-16.0); Imm Gran Abs Auto 0.01 X10*3/uL (0.00-0.03); Imm Gran Pct Auto 0.2 % (0.0-0.4); Lymphocytes Absolute Auto 1.6 X10*3/uL (1.2-4.9); Mean Corpuscular HGB Conc 33.2 g/dl (31.0-35.0); Mean Corpuscular Hemoglobin 30.9 pg (27.0-33.0); Mean Corpuscular Volume 93.2 fL (80.0-98.0); NRBC Abs Auto 0.000 X10*3/uL (0.0-0.012); NRBC Pct Auto 0.0 /100WBC (0.0-0.2); Platelet Count 202 X10*3/uL (160-400); Red Blood Count 5.27 X10*6/uL (4.20-5.50); White Blood Count 5.1 X10*3/uL (4.8-10.8)
[2025-06-10 07:59] LABS: Alanine Aminotransferase 13 U/L (0-31); Albumin Level 4.1 g/dL (3.5-5.0); Alkaline Phosphatase 53 U/L (39-117); Anion Gap 9 (12-20); Aspartate Amino Transferase 23 U/L (5-31); Blood Urea Nitrogen 18 mg/dL (9-16); Calcium 9.2 mg/dL (8.4-10.2); Carbon Dioxide 31 mmol/L (22-29); Chloride 107 mmol/L (96-108); Cholesterol 151 mg/dL (<200); Estimated Glomerular Filt Rate > 60; HDL Cholesterol 42 mg/dL (>40); Potassium 4.4 mmol/L (3.3-5.1); Sodium 143 mmol/L (135-145); Total Protein 6.8 g/dL (6.5-8.0); Triglycerides 61 mg/dL (<150)
[2025-06-10 10:30] LABS: Appearance Urine Clear; Glucose Urine UA Negative (Negative); PH 6.0 (5.0-9.0); Specific Gravity - Urine 1.020 (1.005-1.025); UMIC TRIGGER UACC YES
[2025-06-10 10:41] LABS: UACC Culture Trigger YES
== END 2025-06-10 06:02 | disposition home or self-care (01) ==
LOC: HO.LAB 06:01
PROVIDERS: PCP Internal Medicine; Visit Provider Internal Medicine
DX: D64.9 Anemia, unspecified (principal); E78.00 Pure hypercholesterolemia, unspecified; E11.9 Type 2 diabetes mellitus without complications; E55.9 Vitamin D deficiency, unspecified
CPT/HCPCS: 36415; 80053; 80061; 81001; 81003; 82306; 83036; 84443; 85025; 87086

== ENCOUNTER 2025-07-01 09:32 | Outpatient (AMB) | payer MEDICARE, SELFPAY ==
[2025-07-01 09:47] VITALS: BP 110/70; PULSE 75; BMI 25.0
--- NOTE | 2025-07-01 09:47 | MHC.OFFVIS ---
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 Intake Note: New patient had one episode of sob after racing to an appt and it was suggested she have a stress test Package Designer Required: No Allergies Sulfa (Sulfonamide Antibiotics) Allergy (Intermediate, Verified 06/08/25 10:07) RASH,HIVES,ITCHY Medication List - Last Reconciled 07/01/25 by Chon Ramos MD cyanocobalamin (vitamin B-12) 2,000 mcg PO DAILY multivitamin (Daily Multi-Vitamin tablet) 1 tab PO DAILY oxybutynin chloride ER 15 mg PO DAILY 90 days HPI Comments Details: Thank you for referring pursue a in cardiology consultation today for symptoms of exertional shortness of breath. She is a pleasant 80 year female with prior history of smoking for greater than 60 years, carries a diagnose of COPD although she denies it, hyperlipidemia. Patient says in summertime she had parked a long distance away from the oncologist office and then was walking towards the office got significantly short of breath. Mentioned to the oncologist who then advised her to see Cardiology. Patient continues to have exertional shortness of breath although she does not exercise much and does not push herself. Denies any symptoms of associated chest tightness. Denies any orthopnea, PND, leg edema. She is trying to cut down her smoking but has not been very successful. She says last year when she was shoveling heavy snow she would notice rapid heart rate and sweating but no associated chest tightness. She has stopped doing that. She denies any lightheadedness, syncope. She does have moderate calcification of coronary arteries on chest CT done for lung cancer evaluation as well as evidence of ascending aortic enlargement. [facility] Medical History Overweight (BMI 25.0-29.9) Smoker Personal history of nicotine dependence Overactive bladder Allergic rhinitis Hemochromatosis carrier Impaired fasting glucose Dyslipidemia Pulmonary nodules COPD (chronic obstructive pulmonary disease) Nicotine dependence, cigarettes, uncomplicated Surgical History History of cataract surgery History of breast biopsy History of excision of lesion History of colonoscopy Family History Mother Hemochromatosis Breast cancer Maternal Aunt Ovarian cancer Maternal Aunt Breast cancer Father Medical history unknown Social History Household Members: None Housing: House Alcohol intake: current Alcohol intake frequency: holidays/special occasions only Alcohol type: wine Patient Tobacco Use Status: Current everyday Tobacco user Tobacco use type: Cigarette Cigarette Packs Per Day: 1 Years Smoked: 60 e-Cigarette/Vaping Use: Never Used Second Hand Smoke Exposure: Yes service: No Current occupational status: retired Cognitive needs: No Hearing needs: No Vision needs: Yes Review of Systems Const Denies chills, Denies daytime sleepiness, Denies fatigue, Denies fever(s), Denies frequent falls, Reports poor appetite, Denies snoring, Denies stops breathing during sleep, Denies weakness, Denies weight gain and Reports weight loss Eyes Reports loss of vision ENT Denies dizziness and Denies hearing loss Card Denies chest pain, Denies claudication, Denies leg edema, Denies lightheadedness, Reports palpitations, Reports dyspnea, Reports dyspnea on exertion and Denies orthopnea Resp Denies cough, Denies excessive phlegm production, Reports dyspnea, Reports dyspnea on exertion, Denies snoring and Denies wheezing GI Denies abdominal pain, Denies hematochezia, Denies change in bowel habits, Denies nausea and Denies vomiting Denies urinary frequency and Denies dysuria Musc Denies arthralgias, Denies muscle weakness and Denies numbness Skin/Breast Denies nail changes and Denies rash Neuro Denies Abnormal speech present, Denies dizziness, Denies frequent falls, Reports loss of vision, Reports memory loss, Denies numbness and Denies weakness Psych Denies depression and Reports memory loss Endo Denies fatigue and Reports palpitations Jasbir/Lymph Reports easy bruising and Reports other (anemia) Aller/Immun Denies wheezing Physical Exam Vital Signs: Last Vital Signs Pulse 75 07/01/25 09:47 BP 110/70 07/01/25 09:47 BMI result Body Mass Index 25.0 Const General: cooperative, comfortable, no acute distress, alert, awake and Physically active Nutritional Appearance: overweight Orientation/consciousness: patient oriented x3 Limitations: no limitations HEENT Head: Yes normocephalic and Yes atraumatic Neck Neck: Yes trachea midline, Yes supple and Yes no JVD Carotids: no bruits Resp Effort & Inspection: normal respiratory effort Auscultation: crackles (coarse) and diminished lung sounds Cardio Jugular venous distension: no JVD Rate: regular rate Rhythm: regular rhythm Heart sounds: S1 normal heart sound present, S2 normal heart sound present, no click, no gallops, no murmurs and no rubs GI Auscultation: normal bowel sounds Skin General skin exam: no rashes or lesions noted Neuro General: patient oriented x3 and no focal motor deficits Speech: No Abnormal speech present Extrem General: Yes no clubbing, cyanosis or edema Psych Appearance: grossly normal Office Procedures EKG Details: EKGs shows normal sinus rhythm with left anterior fascicular block with poor R-wave progression most likely lead placement and possible lung disease 56547-[id number], Complete Assessment & Plan Assessment & Plan (1) Exertional dyspnea: Code(s): R06.09 - Other forms of dyspnea Category: Medical Plan: Exertional shortness of breath in this elderly woman which she is not happening at rest with no says chest pain could be related to underlying pulmonary parenchymal disease given her extensive history of smoking. Although underlying significant coronary artery disease can not be ruled out and shortness of breath could be an anginal equivalent. Discussed with her about further pursuing workup to assess for the same. Would suggest a vasodilating myocardial perfusion imaging to assess for the same. Also suggest an echocardiogram to evaluate LV systolic and diastolic function as well as to evaluate for RV size and systolic function and pulmonary hypertension. These tests will be scheduled in near future. We discussed about smoking cessation, she says she is trying. She had encouraged to maintain activity level as tolerated. Consider low-dose aspirin therapy. No pharmacotherapy is being recommended. Will also consider pulmonary function test. Will follow up in the clinic in 6 weeks time after above-mentioned workup. Orders: Orders PFT pulmonary function test Today R06.09 - Other forms of dyspnea CA lexiscan stress w darby Today R06.09 - Other forms of dyspnea CA echo transthoracic complete Today R06.09 - Other forms of dyspnea Coding Level of Care Code New Pt Level 4 (40197) Complex EM visit Add On G2211 Diagnoses Exertional dyspnea R06.09 CPT Codes EKG - CPT: 68234-Fldokjwfgrufccmyh, Complete ([id number])
--- OUTSIDE RECORDS SUMMARY | 2025-07-01 10:43 | XMS_ITS | Patient Health Record ---
Author Organization [facility] Address [address] [place] [address] Care Team Providers Care Auditing Clerk Name Role Phone Bruno Santana Unavailable [phone] Reason For Referral No Information Medications Medication SIG (Take, Route, Fr equency, Duration) Notes Start Date End Date Status MoviPrep 100 GM as directed Orally 07/25/20110 08/2024 Active Problems Problem Type SNOMED Code ICD Code Onset Dates Problem Status W/U Status Risk Notes Problem History of polyp of colon (situation) (803088029) Personal history of colonic polyps (V12.72) Active confirmed Problem Screening for malignant neoplasm of colon (134066921) Special screening for malignant neoplasms, colon (V76.51) Active confirmed Plan Of Treatment Future Test Test Name Order Date COLONOSCOPY 07/25/2011 Insurance Providers Payer Name Payer Address Payer Phone Subscriber Number Group Number Insured Name Patient Relationship to Insured Coverage Start Date Coverage End Date [facility] [address] [place], [place] [id number] JANEE CARRENO Self - patient is the insured Medical (General) History Medical History History ICD Code Denies [place],DM,CVA,Lung disease,renal dise ase Surgical History Surgery Date(Month/Year) eyelid lift surgery
== END 2025-07-01 10:24 | disposition home or self-care (01) ==
PROVIDERS: PCP Internal Medicine; Visit Provider Internal Medicine Cardiovascular Disease
DX: R06.09 Other forms of dyspnea (principal)
CPT/HCPCS: 93010; 99204; G2211

== ENCOUNTER → 2025-07-01 09:32 | Outpatient (BNVA) | payer MEDICARE, SELFPAY | PROVIDERS: PCP Internal Medicine; Visit Provider Internal Medicine Cardiovascular Disease | DX: R06.02 Shortness of breath (principal); R06.09 Other forms of dyspnea | CPT/HCPCS: 93005; 99202 ==

== ENCOUNTER → 2025-08-12 07:54 | Outpatient (REF) | payer MEDICARE, SELFPAY ==
--- OUTSIDE RECORDS SUMMARY | 2025-08-12 08:01 | XMS_ITS | Patient Health Record ---
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[employer] [place] Section Notes: She smokes and has only occa sional alcohol Problems Problem Type SNOMED Code ICD Code Onset Dates Problem Status W/U Status Risk Notes Problem History of polyp of colon (situation) (205339241) Personal history of colonic polyps (V12.72) Active confirmed Problem Screening for malignant neoplasm of colon (382733134) Special screening for malignant neoplasms, colon (V76.51) Active confirmed Plan Of Treatment Future Test Test Name Order Date COLONOSCOPY 07/25/2011 Insurance Providers Payer Name Payer Address Payer Phone Subscriber Number Group Number Insured Name Patient Relationship to Insured Coverage Start Date Coverage End Date [facility] [address] [place], [place] [id number] JANEE CARRENO Self - patient is the insured Medical (General) History Medical History History ICD Code Denies MT,DM,CVA,Lung disease,renal dise ase Surgical History Surgery Date(Month/Year) eyelid lift surgery
== END ==
LOC: HO.CARD 07:54
PROVIDERS: PCP Internal Medicine; Visit Provider Internal Medicine Cardiovascular Disease
DX: R06.09 Other forms of dyspnea (principal)
CPT/HCPCS: 93306

== ENCOUNTER → 2025-08-12 07:57 | Outpatient (BNV) | payer MEDICARE, SELFPAY | PROVIDERS: PCP Internal Medicine; Visit Provider Internal Medicine Cardiovascular Disease | DX: I77.810 Thoracic aortic ectasia (principal) | CPT/HCPCS: 93306 ==